=== PATIENT | female | born 1965 | race Hispanic/Latino ===

== ENCOUNTER → 2018-03-05 | Day surgery (SDC) | payer OTHER ==
[2018-03-04 12:47] LABS: BASOPHILS % 0.4 % (0.0-1.0); EOSINOPHILS # (AUTO) 0.2 (0.0-0.4); EOSINOPHILS % 2.4 % (0.0-6.0); HEMATOCRIT 40.8 % (34.2-44.1); HEMOGLOBIN 13.1 g/dL (12.0-16.0); LYMPHOCYTES % 31.5 % (18.0-39.1); MEAN CORPUSCULAR HEMOGLOBIN 29.2 pg (28-32); MEAN CORPUSCULAR HGB CONC 32.1 g/dL (31-35); MEAN CORPUSCULAR VOLUME 90.9 fL (81-99); MONOCYTES # (AUTO) 0.6 (0.2-0.8); NEUTROPHILS # (AUTO) 5.7 (2.1-6.9); NEUTROPHILS % 59.3 % (38.7-80.0); PLATELET COUNT 283 x10e3/uL (140-360); RED BLOOD COUNT 4.49 x10e6/uL (3.6-5.1); RED CELL DISTRIBUTION WIDTH 13.3 % (11.7-14.4)
[2018-03-04 13:00] LABS: ALANINE AMINOTRANSFERASE 34 IU/L (0-55); ALBUMIN 4.1 g/dL (3.5-5.0); ALBUMIN/GLOBULIN RATIO 1.3 (0.8-2.0); ALKALINE PHOSPHATASE 87 IU/L (40-150); ANION GAP 12.9 mmol/L (8-16); BLOOD UREA NITROGEN 16 mg/dL (7-26); BUN/CREATININE RATIO 20 (6-25); CALCIUM 9.8 mg/dL (8.4-10.2); CARBON DIOXIDE 27 mmol/L (22-29); CHLORIDE 103 mmol/L (98-107); EST GLOMERULAR FILTRATION RATE > 60 ML/MIN (60-); GLUCOSE 95 mg/dL (74-118); POTASSIUM 3.9 mmol/L (3.5-5.1); SODIUM 139 mmol/L (136-145)
[~2018-03-05] MED LIST: AZO CRANBERRY1 EAC1 PO; BELLADONNA/OPIUM 60 MG SUPP PR ONE; CEFTRIAXONE SOD 1 GM VIAL ONE; DEXAMETHASONE SOD PHOS INJ 4 MG/ML VIAL ONE; FENTANYL CITRATE/PF 100MCG/2 ML INJ ONE; GENTAMICIN 80MG/NS 100 ML 100 ML IV ONE; IBUPROFEN PO; IOPAMIDOL 610MG/1ML 300 MG/ML VIAL IV ONE; LIDOCAINE HCL 2% LOCAL INJ 5 ML SDV VIAL INJ ONE; MIDAZOLAM HCL 2 MG/2 ML VIAL ONE; ONDANSETRON HCL INJ 2 MG/ML VIAL ONE; OXYBUTYNIN CHLOR5 MG PO; PROPOFOL IV EMULSION 10 MG/ML 20 ML VIAL ONE; SEVOFLURANE INHAL SOLN 250 ML PEN BTL ONE; TYLENOL # 31 EA; ULTRAM50 MG PO
--- OUTSIDE RECORDS SUMMARY | 2018-03-05 06:38 | XMS REPORT | CCD ---
Author Author Auto Generated Organization [facility] Address Unknown Phone Unavailable Care Team Providers Care Kettle Chipper Name Role Phone Radha Bolton RP Allergies, Adverse Reactions, Alerts Substance Reaction Status erythromycin Active
--- OUTSIDE RECORDS SUMMARY | 2018-03-05 06:38 | XMS REPORT | Clinical Summary ---
Author Author [facility] Organization [facility] Address Unknown Phone Unavailable Care Team Providers Care Latex Thread Machine Operator Name Role Phone Antonella Brown MD PCP Allergies Comments Active Allergy Reactions Severity Noted Date Erythromycin Rash Medium 02/21/2018 Medications End Date Status Medication Sig Dispensed Refills Start Date Active diphenhydrAMINE Take 25 mg by 0 (BENADRYL) 25 mg tablet mouth daily as needed for allergies or sleep. Active acetaminophen-codeine Take 1 tablet 0 (TYLENOL WITH CODEINE #3) by mouth 300-30 mg per tablet every 4 (four) hours as needed for moderate pain. Active sulfamethoxazole-trimetho Take 1 tablet 0 prim (BACTRIM DS) 800-160 by mouth 2 mg per tablet (two) times a day. Active naproxen sodium (ALEVE) Take 220 mg 0 220 mg capsule by mouth 2 (two) times a day as needed. Active Problems No known active problems Encounters Care Team Description Date Type Specialty Harley Callaway MD 02/21/2018 Anesthesia General Surgery Event iBmal Pantoja MD CYSTO RETROGRADE, STENT PLACEMENT, URETEROSCOPY WITH LASER LITHOTRIPSY 02/21/2018 Surgery General Surgery Bimal Pantoja MD Calculus of ureter; Calculus of kidney 02/21/2018 Hospital General Surgery Encounter Antonella Brown MD Breast cancer screening 10/17/2017 Hospital Radiology Encounter Antonella Brown MD Breast cancer screening (Primary Dx) 09/13/2017 Transcribe Access Orders after 03/04/2017 Family History Medical History Relation Name Comments Heart disease Brother Heart disease Father Cancer Maternal Grandmother Diabetes Mother Cancer Paternal Grandmother Relation Name Status Comments Brother Father Maternal Grandmother Mother Paternal Grandmother Social History Date Tobacco Use Types Packs/Day Years Used Never Smoker Smokeless Tobacco: Never Used Alcohol Use Drinks/Week oz/Week Comments Yes 1 Cans of 0.6 beer Sex Assigned at Date Recorded Not on file Industry Job Start Date Occupation Not on file Not on file Not on file Travel End Travel History Travel Start No recent travel history available. Last Filed Vital Signs Time Taken Vital Sign Reading 02/21/2018 6:15 PM HEALTH ASSESSMENT AND TREATMENT TEACHER Blood Pressure 136/71 02/21/2018 6:15 PM HEALTH ASSESSMENT AND TREATMENT TEACHER Pulse 73 02/21/2018 5:56 PM HEALTH ASSESSMENT AND TREATMENT TEACHER Temperature 36.2 C (97.1 F) 02/21/2018 6:15 PM HEALTH ASSESSMENT AND TREATMENT TEACHER Respiratory Rate 18 02/21/2018 6:15 PM HEALTH ASSESSMENT AND TREATMENT TEACHER Oxygen Saturation 97% - Inhaled Oxygen - Concentration 02/21/2018 1:28 PM HEALTH ASSESSMENT AND TREATMENT TEACHER Weight 82.8 kg (182 lb 9.6 oz) 02/21/2018 1:28 PM HEALTH ASSESSMENT AND TREATMENT TEACHER Height 157.5 cm (5' 2") 02/21/2018 1:28 PM HEALTH ASSESSMENT AND TREATMENT TEACHER Body Mass Index 33.4 Plan of Treatment Health Maintenance Due Date Last Done Comments MMR VACCINES (1 of 1 - 1966 Standard series) VARICELLA VACCINES (1 of 1978 2 - 2-dose adolescent series) CERVICAL CANCER SCREENING 1986 COLON CANCER SCREENING 08/17/2015 SHINGRIX VACCINE (1 of 2) 08/17/2015 INFLUENZA VACCINE 11/13/2017 BREAST CANCER SCREENING 10/18/2019 10/17/2017, 02/03/2016, 03/31/2015, Additional history exists HEPATITIS B VACCINES Aged Out No longer eligible based on patient's age to complete this topic IPV VACCINES Aged Out No longer eligible based on patient's age to complete this topic MENINGOCOCCAL VACCINE Aged Out No longer eligible based on patient's age to complete this topic Implants Device Identifier Shelf Expiration Date Model / Serial / Lot Implanted Type Area Manufactur er 12/13/2020 [id number] / / [id number] Stent Uretl Unvrsa 6fr 22cm Urological Left: Ureter, COOK Hydrphlc W/O Gw - [id number] Implants [place] [employer] Implanted: Qty: 1 on 02/24/2018 by or Bimal Burns MD Procedures Comments Procedure Name Priority Date/Time Associated Diagnosis [place] < 1 HOUR Routine 02/21/2018 7:58 PM HEALTH ASSESSMENT AND TREATMENT TEACHER SURGICAL PATHOLOGY Routine 02/21/2018 REQUEST 4:55 PM HEALTH ASSESSMENT AND TREATMENT TEACHER CALCULI ANALYSIS WITH Routine 02/21/2018 PHOTO 4:55 PM HEALTH ASSESSMENT AND TREATMENT TEACHER ME AN ELECTIVE Routine 02/21/2018 SUPRAGLOTTIC AIRWAY 4:48 PM HEALTH ASSESSMENT AND TREATMENT TEACHER Procedure Note - Parish Bragg - 02/21/2018 4:48 PM HEALTH ASSESSMENT AND TREATMENT TEACHER Airway Date/Time: 02/21/2018 4:31 PM Performed by: PARISH BRAGG Authorized by: HARLEY CALLAWAY Location: OR Urgency: Elective Difficult Airway: No Anesthesio logist: HARLEY CALLAWAY Resident/C RNA/AA: PARISH BRAGG Performed by: resident/C RNA/AA Preoxygena radhika with 100% O2: Yes Mask Ventilatio n: Not attempted Final Airway Type: Supraglott ic airway Final LMA: Unique LMA Size: 4 Number of Attempts at Approach: 1 CYSTO RETROGRADE 02/21/2018 Calculus of ureter 3:00 PM HEALTH ASSESSMENT AND TREATMENT TEACHER Calculus of kidney Special Needs OUR LASER ESTIMATED GFR STAT 02/21/2018 1:15 PM HEALTH ASSESSMENT AND TREATMENT TEACHER URIC ACID LEVEL STAT 02/21/2018 1:15 PM HEALTH ASSESSMENT AND TREATMENT TEACHER PARATHYROID HORMONE STAT 02/21/2018 1:15 PM HEALTH ASSESSMENT AND TREATMENT TEACHER COMPREHENSIVE METABOLIC STAT 02/21/2018 PANEL 1:15 PM HEALTH ASSESSMENT AND TREATMENT TEACHER HC COMPLETE BLD COUNT STAT 02/21/2018 W/AUTO DIFF 1:15 PM HEALTH ASSESSMENT AND TREATMENT TEACHER XR ABDOMEN 1 VW STAT 02/21/2018 1:07 PM HEALTH ASSESSMENT AND TREATMENT TEACHER MAMMO BREAST SCREEN Routine 10/17/2017 Breast cancer screening TOMOSYNTHESIS BILATERAL 11:50 AM CDT after 03/04/2017 Results * OR FL < 1 Hour (02/21/2018 7:58 PM HEALTH ASSESSMENT AND TREATMENT TEACHER) Narrative Performed At EXAMINATION:[place] 1 HOUR HM RADIANT C-arm fluoroscopy was requested in OR.FLUORO TIME 0:56 IMPRESSION: Separate operative report will be issued by the physician performing the procedure. [id number] Procedure Note Hm Interface, Radiology Results Incoming - 02/24/2018 10:27 AM HEALTH ASSESSMENT AND TREATMENT TEACHER EXAMINATION: [place] FL 1 HOUR C-arm fluoroscopy was requested in OR. FLUORO TIME 0:56 IMPRESSION: Separate operative report will be issued by the physician performing the procedure. [id number] Performing Organization Address City/State/Zipcode Phone Number [facility] [address] [place] [address] * Calculi analysis with photo (02/21/2018 4:55 PM HEALTH ASSESSMENT AND TREATMENT TEACHER) Calculi mass 46 mg [facility] Calculi number Numerous [facility] Calculi size 1 to 4 mm [facility] Calculi descrption See Note [facility] Comment: Specimen consists of numerous, small, brown/gavin, irregular calculi fragments. Calculi composition See Note [facility] Comment: Calculi composed primarily of: 80% calcium oxalate monohydrate, 10% calcium oxalate dihydrate, and 10% calcium phosphate (hydroxy- and carbonate- apatite). INTERPRETIVE INFORMATION: Calculi (Stone) analysis Calculi are the products of physiological processes that yield crystalline compounds in a matrix of biological compounds and blood.Matrix components are not reported.The clinically significant crystalline components identified in calculi specimens are reported.Gross description may not be consistent with composition determined by FTIR analysis. EER calculi (stone) See Note [facility] analysis and photo Comment: Access [facility] Enhanced Report using either link below: -Direct access: [email or web address] -Enter Username, Password: [email or web address] Username: [email or web address] Password: [email or web address] Performed by [facility], [address] [place], [place] [id number] [email or web address], Thomas Ambriz MD - Lab. Director Specimen Serum Narrative Performed At [id number] [facility] LEFT URETERAL STONE Performing Organization Address [facility]/Zipcode Phone Number [facility] [address] [place] [address] [facility] [address] [place] [address] * Surgical pathology request (02/21/2018 4:55 PM HEALTH ASSESSMENT AND TREATMENT TEACHER) [facility] DEPARTMENT OF PATHOLOGY AND GENOMIC MEDICINE Surgical pathology report See link below for PDF Lab [facility] DEPARTMENT OF Report PATHOLOGY AND GENOMIC MEDICINE Result status This is Final Report for [facility] DEPARTMENT [id number] PATHOLOGY AND GENOMIC MEDICINE Performing Organization Address [facility] Phone Number [address] [place] [address] PATHOLOGY AND GENOMIC MEDICINE * Estimated GFR (02/21/2018 1:15 PM HEALTH ASSESSMENT AND TREATMENT TEACHER) Estimated GFR 84 mL/min/1.73 m2 [facility] DEPARTMENT OF Comment: PATHOLOGY AND CatergoryUnitsInte GENOMIC MEDICINE rpretation G1 >=90 Normal or high G2 60-89Mildly decreased G6o15-69 Mildly to moderately decreased [id number] Moderately to severely decreased G4 15-29Severely decreased G5 <15Kidney failure The eGFR was calculated using the Chronic Kidney Disease Epidemiology Collaboration (CKD-EPI) equation. Interpretation is based on recommendations of the National Kidney Foundation-Kidney Disease Outcomes Quality Initiative (NKF-KDOQI) published in 2014. Specimen Plasma specimen Performing Organization Address City/[facility]/Zipcode Phone Number [address] [place] [address] PATHOLOGY AND GENOMIC MEDICINE * CBC with platelet and differential (02/21/2018 1:15 PM HEALTH ASSESSMENT AND TREATMENT TEACHER) WBC 8.88 4.50 - 11.00 k/uL [facility] DEPARTMENT OF PATHOLOGY AND GENOMIC MEDICINE RBC 4.51 4.20 - 5.50 m/uL [facility] DEPARTMENT OF PATHOLOGY AND GENOMIC MEDICINE HGB 13.0 12.0 - 16.0 g/dL [facility] DEPARTMENT OF PATHOLOGY AND GENOMIC MEDICINE HCT 40.4 37.0 - 47.0 % [facility] DEPARTMENT OF PATHOLOGY AND GENOMIC MEDICINE MCV 89.6 82.0 - 100.0 fL [facility] DEPARTMENT OF PATHOLOGY AND GENOMIC MEDICINE MCH 28.8 27.0 - 34.0 pg [facility] DEPARTMENT OF PATHOLOGY AND GENOMIC MEDICINE MCHC 32.2 31.0 - 37.0 g/dL [facility] DEPARTMENT OF PATHOLOGY AND GENOMIC MEDICINE RDW - SD 45.0 37.0 - 55.0 fL [facility] DEPARTMENT OF PATHOLOGY AND GENOMIC MEDICINE MPV 10.3 8.8 - 13.2 fL [facility] DEPARTMENT OF PATHOLOGY AND GENOMIC MEDICINE Platelet count 323 150 - 400 k/uL [facility] DEPARTMENT OF PATHOLOGY AND GENOMIC MEDICINE Nucleated RBC 0.00 /100 WBC [facility] DEPARTMENT OF PATHOLOGY AND GENOMIC MEDICINE Neutrophils 55.2 39.0 - 69.0 % [facility] DEPARTMENT OF PATHOLOGY AND GENOMIC MEDICINE Lymphocytes 34.6 25.0 - 45.0 % [facility] DEPARTMENT OF PATHOLOGY AND GENOMIC MEDICINE Monocytes 6.5 0.0 - 10.0 % [facility] DEPARTMENT OF PATHOLOGY AND GENOMIC MEDICINE Eosinophils 2.7 0.0 - 5.0 % [facility] DEPARTMENT OF PATHOLOGY AND GENOMIC MEDICINE Basophils 0.5 0.0 - 1.0 % [facility] DEPARTMENT OF PATHOLOGY AND GENOMIC MEDICINE Specimen Blood Performing Organization Address [facility] Phone Number [address] [place] [address] PATHOLOGY AND [facility] * Uric acid level (02/21/2018 1:15 PM HEALTH ASSESSMENT AND TREATMENT TEACHER) Uric acid 5.8 (H) 2.4 - 5.7 mg/dL [facility] DEPARTMENT OF PATHOLOGY AND GENOMIC MEDICINE Specimen Plasma specimen Performing Organization Address [facility] Phone Number [address] [place] [address] PATHOLOGY [facility] * Parathyroid hormone (02/21/2018 1:15 PM HEALTH ASSESSMENT AND TREATMENT TEACHER) PTH 63 15 - 65 pg/mL [facility] DEPARTMENT OF PATHOLOGY AND GENOMIC MEDICINE Specimen Blood Performing Organization Address [facility] Phone Number [address] [place] [address] PATHOLOGY [facility] * Comprehensive metabolic panel (02/21/2018 1:15 PM HEALTH ASSESSMENT AND TREATMENT TEACHER) Sodium 142 135 - 148 mEq/L [facility] DEPARTMENT OF PATHOLOGY AND GENOMIC MEDICINE Potassium 4.1 3.5 - 5.0 mEq/L [facility] DEPARTMENT OF PATHOLOGY AND GENOMIC MEDICINE Chloride 104 98 - 112 mEq/L [facility] DEPARTMENT OF PATHOLOGY AND GENOMIC MEDICINE CO2 27 24 - 31 mEq/L [facility] DEPARTMENT OF PATHOLOGY AND GENOMIC MEDICINE Anion gap 11@ANIO 7 - 15 mEq/L [facility] DEPARTMENT OF PATHOLOGY AND GENOMIC MEDICINE BUN 16 6 - 20 mg/dL [facility] DEPARTMENT OF PATHOLOGY AND GENOMIC MEDICINE Creatinine 0.80 0.50 - 0.90 mg/dL [facility] DEPARTMENT OF PATHOLOGY AND GENOMIC MEDICINE Glucose 102 (H) 65 - 99 mg/dL [facility] DEPARTMENT OF PATHOLOGY AND GENOMIC MEDICINE Calcium 10.2 8.3 - 10.2 mg/dL [facility] DEPARTMENT OF PATHOLOGY AND GENOMIC MEDICINE Protein 8.0 6.3 - 8.3 g/dL [facility] DEPARTMENT OF Comment: PATHOLOGY AND GENOMIC MEDICINE 4.6-7.0 g/dL 1 week 4.4-7.6 g/dL 7 months-1year 5.1-7.3 g/dL 1-2 years5.6-7 .5 g/dL >3 years6.0-8 .0 g/dL 18-150 6.3-8.3 g/dL Albumin 4.6 3.5 - 5.0 g/dL [facility] DEPARTMENT OF PATHOLOGY AND GENOMIC MEDICINE A/G ratio 1.4 0.7 - 3.8 [facility] DEPARTMENT OF PATHOLOGY AND GENOMIC MEDICINE Alkaline phosphatase 97 35 - 104 U/L [facility] DEPARTMENT OF PATHOLOGY AND GENOMIC MEDICINE AST 29 10 - 35 U/L [facility] DEPARTMENT OF PATHOLOGY AND GENOMIC MEDICINE ALT 42 5 - 50 U/L [facility] DEPARTMENT OF PATHOLOGY AND GENOMIC MEDICINE Total bilirubin 0.7 0.0 - 1.2 mg/dL [facility] DEPARTMENT OF PATHOLOGY AND GENOMIC MEDICINE Specimen Plasma specimen Performing Organization Address City/State/Zipcode Phone Number [facility] [place] [address] [place] [address] PATHOLOGY AND GENOMIC MEDICINE * XR Abdomen 1 Vw (02/21/2018 1:07 PM HEALTH ASSESSMENT AND TREATMENT TEACHER) Narrative Performed At EXAMINATION:XR ABDOMEN 1 VW [facility] CLINICAL HISTORY:PREOP COMPARISON:None. FINDINGS: The bones appear unremarkable. The abdominal gas pattern is nonspecific with a large volume of stool in the colon. Mild central small bowel distention is noted. No extraluminal collections are noted. Vascular calcifications are present in the pelvis. IMPRESSION: Nonspecific abdominal gas pattern [id number] Procedure Note Hm Interface, Radiology Results Incoming - 02/21/2018 1:13 PM HEALTH ASSESSMENT AND TREATMENT TEACHER EXAMINATION: XR ABDOMEN 1 VW CLINICAL HISTORY: PREOP COMPARISON: None. FINDINGS: The bones appear unremarkable. The abdominal gas pattern is nonspecific with a large volume of stool in the colon. Mild central small bowel distention is noted. No extraluminal collections are noted. Vascular calcifications are present in the pelvis. IMPRESSION: Nonspecific abdominal gas pattern [id number] Performing Organization Address [facility] Phone Number [facility] [address] [place] [address] * Mammo Breast Screen Tomosynthesis Bilateral (10/17/2017 11:50 AM CDT) Narrative Performed At PROCEDURE:MAMMO BREAST SCREEN TOMOSYNTHESIS BILATERAL10/17/2017 11:33 AM [facility] This patient's mammogram was interpreted with the assistance of computer-aided detection (CAD). Digital breast tomosynthesis (3D) imaging was performed. CLINICAL HISTORY:52-year-old female referred for screening mammogram.She reports no new or current breast complaints. FAMILY HISTORY:Family history of breast carcinoma diagnosed in patient's paternal grandmother at age 91 and paternal aunt at age 40. COMPARISON:02/03/2016, 03/31/2015, 10/27/2013. BREAST DENSITY:The breasts are heterogeneously dense, which may obscure small masses. DIGITAL SCREENING MAMMOGRAPHY FINDINGS: There are no dominant masses, suspicious microcalcifications or unexplained architectural distortion to suggest malignancy. No interval suspicious mammographic change. IMPRESSION: BI-RADS Category 1-Negative. RECOMMENDATION: Annual mammography. This facility is accredited by [employer] for Mammography. A negative x-ray report should not delay biopsy if a dominant or clinically suspicious mass is present. Not all cancers are identified by x-ray. [id number] The results of this exam have been sent to the patient. Performing Organization Address [facility] Phone Number [facility] [address] [place] [address] after 03/04/2017 Insurance Payer Benefit Subscriber ID Type Phone Address Plan / Group HUMANA HUMANA xxxxxxxxx PPO CHOICE CARE PPO amily (Home) [place] [address] Advance Directives Patient has advance care planning documents on file. For more information, thelma e contact: Christopher Aguirre [address] [place] [address]
--- OUTSIDE RECORDS SUMMARY | 2018-03-05 06:38 | XMS REPORT | Summary of Care ---
Author Author [facility] Organization [facility] Address Unknown Phone Unavailable Encounter HQ Encntr_alias(FIN) [id number] Date(s): 04/13/15 - 04/13/15 [facility] [address] [place] [address]- [phone] Discharge Disposition: Home Attending Physician: Bernardo Richardson MD Vital Signs No data available for this section Problem List No data available for this section Allergies, Adverse Reactions, Alerts Substance Reaction Severity Status erythromycin Active Medications No data available for this section Results No data available for this section Immunizations No data available for this section Procedures No data available for this section Social History No data available for this section Assessment and Plan No data available for this section
--- OUTSIDE RECORDS SUMMARY | 2018-03-05 06:38 | XMS REPORT | Continuity of Care Document ---
Author Author [facility] Interface Address Unknown Phone Unavailable Problems Problem Status Onset Date Classification Date Reported Comments Source MENORHAGIA Active 04/01/2017 [facility] ABNORMAL INCREASED MUSCLE TIGHTNESS Active 02/15/2012 [facility] 728.85, ABNORMAL INCREASED MUSCLE TIGHTNESS Active 02/06/2012 [facility] CHEST PAIN Active 01/08/2012 [facility] MUSCULAR/CERVICAL PAIN Active 12/24/2011 [facility] Menorrhagia Resolved Problem 04/09/2017 [facility] Obesity Resolved Problem 04/09/2017 [facility] Precordial pain Active Diagnosis 02/28/2016 [facility] Pure hypercholesterolemia Active Diagnosis 02/28/2016 [facility] Abnormal EKG Active Diagnosis 02/28/2016 [facility] Abn. Cardio Study Active Diagnosis 02/28/2016 [facility] CERVICAL PAIN Active [facility] URETERAL STONE Active [place] PAIN Active [facility] Medications Medication Details Route Status Patient Instructions Ordering Provider Order Date Source gabapentin 300 MG Oral Capsule 300 mg=1 cap, PO, Q8H, # 60 cap, 0 Refill(s) Active 04/06/2017 [facility] ondansetron 4 mg oral tablet 4 mg=1 tab, PO, Q8H, PRN Nausea, # 60 tab, 0 Refill(s) Active 04/06/2017 [facility] Docusate Sodium 50 MG / sennosides, SNF 8.6 MG Oral Tablet 1 tab, PO, BID, # 60 tab, 0 Refill(s) Active 04/06/2017 [facility] tramadol hydrochloride 50 MG Oral Tablet 50 mg=1 tab, PO, Q6H, PRN Pain Score 4-6, # 30 tab, 0 Refill(s) Active 04/06/2017 [facility] Enoxaparin 40 mg, 0.4 mL, Route: SUB-Q, Drug form: INJ, [id number], Dosing Weight 81.818, kg, Start date: 04/06/17 9:00:00 BEAMSTER, Duration: 30 day, Stop date: 05/05/17 9:00:00 CSTNotes: (Same as: Lovenox) Inactive 04/06/2017 [facility] Docusate Sodium 50 MG / sennosides, SNF 8.6 MG Oral Tablet 1 tab, Route: PO, Drug Form: TAB, Dosing Weight 81.818, kg, BID, Start date: 04/06/17 9:00:00 BEAMSTER, Duration: 30 day, Stop date: 05/05/17 17:00:00 CSTNotes: (Same as Senokot-S) Equiv. to Nitza-Colace. Inactive 04/06/2017 [facility] CeleBREX 200 mg, 1 cap, Route: PO, Drug form: CAP, Q12H, Dosing Weight 81.818, kg, Start date: 04/06/17 0:00:00 BEAMSTER, Duration: 30 day, Stop date: 05/05/17 12:00:00 CSTNotes: NSAID. Please check indication. Not for seizure. (Same As: CeleBREX) Inactive 04/06/2017 [facility] Acetaminophen 1,000 mg, 2 tab, Route: PO, Drug form: TAB, Q6H, Dosing Weight 81.818, kg, Start date: 04/05/17 21:00:00 BEAMSTER, Duration: 30 day, Stop date: 05/05/17 12:00:00 CSTNotes: Max acetaminophen 4000 mg/day (4 gm/day). (Same as: Tylenol Extra Strength) No Longer Active 04/06/2017 [facility] celecoxib 200 mg, 1 cap, Route: PO, Drug form: CAP, Q12H, Dosing Weight 81.818, kg, Start date: 04/05/17 21:00:00 BEAMSTER, Duration: 30 day, Stop date: 05/05/17 9:00:00 CSTNotes: NSAID. Please check indication. Not for seizure. (Same As: CeleBREX) Inactive 04/06/2017 [facility] CeleBREX 400 mg, 2 cap, Route: PO, Drug form: CAP, ONCE, Dosing Weight 81.818, kg, Priority: Routine, Start date: 04/05/17 20:40:00 BEAMSTER, Stop date: 04/05/17 20:40:00 CSTNotes: NSAID. Please check indication. Not for seizure. (Same As: CeleBREX) No Longer Active 04/06/2017 [facility] gabapentin 300 mg, 1 cap, Route: PO, Drug form: CAP, Q8H, Dosing Weight 81.818, kg, Start date: 04/05/17 20:38:00 BEAMSTER, Duration: 30 day, Stop date: 05/05/17 16:00:00 CSTNotes: (Same as: Neurontin) No Longer Active 04/06/2017 [facility] Simethicone 160 mg, 2 tab, Route: CHEW, Drug form: CHEWTAB, TID, Dosing Weight 81.818, kg, PRN Gas, Start date: 04/05/17 18:00:00 BEAMSTER, Duration: 30 day, Stop date: 05/05/17 17:59:00 CSTNotes: (Same as: Mylicon) No Longer Active 04/06/2017 [facility] Reglan 10 mg, 2 mL, Route: IVP, Drug form: INJ, Q6H, Dosing Weight 81.818, kg, PRN Nausea & Vomiting, Start date: 04/05/17 18:00:00 BEAMSTER, Duration: 30 day, Stop date: 05/05/17 17:59:00 CSTNotes: (Same as: Reglan) No Longer Active 04/06/2017 [facility] Zofran 4 mg, 1 tab, Route: PO, Drug form: TAB, Q8H, Dosing Weight 81.818, kg, PRN Nausea, Start date: 04/05/17 18:00:00 BEAMSTER, Duration: 30 day, Stop date: 05/05/17 17:59:00 CSTNotes: (Same as: Zofran) No Longer Active 04/06/2017 [facility] Calcium Chloride 0.0014 MEQ/ML / Potassium Chloride 0.004 MEQ/ML / Sodium Chloride 0.103 MEQ/ML / Sodium Lactate 0.028 MEQ/ML Injectable Solution 1,000 mL, Rate: 80 ml/hr, Infuse over: 12.5 hr, Route: IV, Dosing Weight 81.818 kg, Total Volume: 1,000, Start date: 04/05/17 18:00:00 BEAMSTER, Duration: 30 day, Stop date: 05/05/17 17:59:00 BEAMSTER, 1.92, m2 No Longer Active 04/06/2017 [facility] neostigmine (ANES) Route: IV, Drug form: INJ, ONCE, Stop date: 04/05/17 17:59:00 BEAMSTER Inactive 04/05/2017 [facility] ketOROLAC (ANES) IV, ONCE Inactive 04/05/2017 [facility] glycopyrrolate (ANES) Route: IV, Drug form: INJ, ONCE, Stop date: 04/05/17 17:59:00 BEAMSTER Inactive 04/05/2017 [facility] ondansetron (ANES) Route: IV, Drug form: INJ, ONCE, Stop date: 04/05/17 17:59:00 BEAMSTER Inactive 04/05/2017 [facility] ceFAZolin (ANES) Route: IV, Drug form: INJ, ONCE, Stop date: 04/05/17 17:42:00 [place]STER Inactive 04/05/2017 [facility] fentaNYL (ANES) Route: IV, Drug form: INJ, ONCE, Stop date: 04/05/17 16:47:00 BEAMSTER Inactive 04/05/2017 [facility] rocuronium (ANES) Route: IV, Drug form: INJ, ONCE, Stop date: 04/05/17 15:37:00 BEAMSTER Inactive 04/05/2017 [facility] famotidine (ANES) Route: IV, Drug form: INJ, ONCE, Stop date: 04/05/17 15:12:00 BEAMSTER Inactive 04/05/2017 [facility] Sodium Chloride 0.9% IV (ANES) 100 mL + magnesium sulfate (ANES) 2000 mg Route: IV, Drug form: INJ, Start date: 04/05/17 15:07:00 BEAMSTER, Stop date: 04/05/17 16:07:00 BEAMSTER Inactive 04/05/2017 [facility] acetaminophen (ANES) Route: IV, Drug form: INJ, ONCE, Stop date: 04/05/17 15:07:00 BEAMSTER Inactive 04/05/2017 [facility] ceFAZolin (ANES) Route: IV, Drug form: INJ, ONCE, Stop date: 04/05/17 14:52:00 BEAMSTER Inactive 04/05/2017 [facility] dexamethasone (ANES) Route: IV, Drug form: INJ, ONCE, Stop date: 04/05/17 14:41:00 BEAMSTER Inactive 04/05/2017 [facility] ketAMINE (ANES) Route: IV, Drug form: INJ, ONCE, Stop date: 04/05/17 14:41:00 BEAMSTER Inactive 04/05/2017 [facility] fentaNYL (ANES) Route: IV, Drug form: INJ, ONCE, Stop date: 04/05/17 14:41:00 BEAMSTER Inactive 04/05/2017 [facility] lidocaine (ANES) Route: IV, Drug form: INJ, ONCE, Stop date: 04/05/17 14:41:00 BEAMSTER Inactive 04/05/2017 [facility] midazolam (ANES) Route: IV, Drug form: SOLN, ONCE, Stop date: 04/05/17 14:41:00 BEAMSTER Inactive 04/05/2017 [facility] rocuronium (ANES) Route: IV, Drug form: INJ, ONCE, Stop date: 04/05/17 14:41:00 BEAMSTER Inactive 04/05/2017 [facility] propofol (ANES) Route: IV, Drug form: INJ, ONCE, Stop date: 04/05/17 14:41:00 BEAMSTER Inactive 04/05/2017 [facility] Tramadol 50 mg, 1 tab, Route: PO, Drug form: TAB, Q6H, Dosing Weight 81.818, kg, PRN Pain Score 4-6, Start date: 04/05/17 14:02:00 BEAMSTER, Duration: 30 day, Stop date: 05/05/17 14:01:00 CSTNotes: Not to exceed 4 00mg/day. (Same As: Ultram) No Longer Active 04/05/2017 [facility] Ondansetron 4 mg, 2 mL, Route: IVP, Drug form: INJ, Q8H, Dosing Weight 81.818, kg, PRN Nausea & Vomiting, Start date: 04/05/17 14:02:00 BEAMSTER, Duration: 30 day, Stop date: 05/05/17 14:01:00 CSTNotes: (Same as: Zofran) MEDICATION WASTE Product Size: 4 mg Product Wasted: ___ mg No Longer Active 04/05/2017 [facility] Lactated Ringers Injection IV (ANES) 1000 mL Route: IV, Total Volume: 1,000, Start date: 04/05/17 13:45:00 BEAMSTER, Stop date: 04/05/17 14:45:00 BEAMSTER Inactive 04/05/2017 [facility] Ondansetron 4 mg, 2 mL, Route: IVP, Drug form: INJ, ONCE, Dosing Weight 81.818, kg, PRN Nausea & Vomiting, Start date: 04/05/17 13:38:00 CSTNotes: (Same as: Zofran) MEDICATION WASTE Product Size: 4 mg Product Wasted: ___ mg Inactive 04/05/2017 [facility] Flumazenil 0.2 mg, 2 mL, Route: IVP, Drug form: INJ, PRN, Dosing Weight 81.818, kg, PRN Benzodiazepine Reversal, Initial dose, Start date: 04/05/17 13:38:00 BEAMSTER, Duration: 30 day, Stop date: 05/05/17 13:37:00 C STNotes: (Same as: Romazicon) Inactive 04/05/2017 [facility] Naloxone 0.4 mg, 1 mL, Route: IVP, Drug form: INJ, Q2MIN, Dosing Weight 81.818, kg, PRN Narcotic Reversal, Start date: 04/05/17 13:38:00 BEAMSTER, Duration: 8 doses or times, Stop date: Limited # of timesNotes: Same as Narcan Inactive 04/05/2017 [facility] Labetalol 10 mg, 2 mL, Route: IVP, Drug form: INJ, Q5Min, Dosing Weight 81.818, kg, PRN Elevated BP, Start date: 04/05/17 13:38:00 BEAMSTER, Duration: 5 doses or times, Stop date: Limited # of times Inactive 04/05/2017 [facility] Hydralazine 10 mg, 0.5 mL, Route: IVP, Drug form: INJ, Q20Min, Dosing Weight 81.818, kg, PRN Elevated BP, Start date: 04/05/17 13:38:00 BEAMSTER, Duration: 2 doses or times, Stop date: Limited # of timesNotes: (Same as: Apresoline) Push over 5 minutes Inactive 04/05/2017 [facility] Oxycodone 10 mg, 2 tab, Route: PO, Drug form: TAB, Q4H, Dosing Weight 81.818, kg, PRN Pain Score 7-10, Start date: 04/05/17 13:38:00 BEAMSTER, Duration: 30 day, Stop date: 05/05/17 13:37:00 CSTNotes: (Same as: Charlee codone) Inactive 04/05/2017 [facility] Hydromorphone 0.5 mg, 0.25 mL, Route: IVP, Drug form: INJ, Q5Min, Dosing Weight 81.818, kg, PRN Pain Score 7-10, Start date: 04/05/17 13:38:00 BEAMSTER, Duration: 4 doses or times, Stop date: Limited # of timesNotes: Hayden hilda as Dilaudid Inactive 04/05/2017 [facility] 72 HR Scopolamine 0.0139 MG/HR Transdermal Patch 1 patch, Route: TOP, Drug Form: ERFILM, Dosing Weight 81.818, kg, PRE OP, Start date: 04/05/17 13:00:00 BEAMSTER, Duration: 30 day, Stop date: 05/05/17 12:59:00 [place] Inactive 04/05/2017 [facility] Neurontin 300 mg, Route: PO, ONCE, Dosing Weight 81.818, kg, Priority: NOW, Start date: 04/05/17 12:31:00 BEAMSTER, Stop date: 04/05/17 12:31:00 BEAMSTER Inactive 04/05/2017 [facility] Celebrex 400 mg, 2 cap, Route: PO, Drug form: CAP, ONCE, Dosing Weight 81.818, kg, Priority: NOW, Start date: 04/05/17 12:31:00 BEAMSTER, Stop date: 04/05/17 12:31:00 CSTNotes: NSAID. Please check indication. Not for seizure. (Same As: CeleBREX) Inactive 04/05/2017 [facility] heparin 5,000 unit, 1 mL, Route: SUB-Q, Drug form: INJ, PRE OP, Dosing Weight 81.818, kg, Start date: 04/05/17 11:00:00 BEAMSTER, Duration: 30 day, Stop date: 05/05/17 10:59:00 CSTNotes: porcine heparin Inactive 04/05/2017 [facility] gabapentin 300 mg, 1 cap, Route: PO, Drug form: CAP, PRE OP, Dosing Weight 81.818, kg, Start date: 04/04/17 20:00:00 BEAMSTER, Duration: 30 day, Stop date: 05/04/17 19:59:00 CSTNotes: (Same as: Neurontin) No Longer Active 04/05/2017 [facility] heparin sodium, porcine 2500 UNT/ML Injectable Solution 5,000 unit, 1 mL, Route: IV, Drug form: INJ, PRE OP, Dosing Weight 81.818, kg, Start date: 04/04/17 20:00:00 BEAMSTER, Duration: 30 day, Stop date: 05/04/17 19:59:00 CSTNotes: porcine heparin No Longer Active 04/05/2017 [facility] 72 HR Scopolamine 0.0139 MG/HR Transdermal Patch 1 patch, Route: TOP, Drug Form: ERFILM, Dosing Weight 81.818, kg, PRE OP, Start date: 04/04/17 20:00:00 BEAMSTER, Duration: 30 day, Stop date: 05/04/17 19:59:00 CSTNotes: Change patch every 72 hours (Same as: Transderm-Scop) No Longer Active 04/05/2017 [facility] Celebrex 400 mg, 4 cap, Route: PO, Drug form: CAP, PRE OP, Dosing Weight 81.818, kg, Start date: 04/04/17 20:00:00 BEAMSTER, Duration: 30 day, Stop date: 05/04/17 19:59:00 CSTNotes: NSAID. Please check indication. Not for seizure. (Same As: CeleBREX ) No Longer Active 04/05/2017 [facility] Benadryl 25 mg, PO, Daily, PRN as needed for allergy symptoms, 0 Refill(s) No Longer Active 04/04/2017 [facility] Indomethacin 1 capsule with food Orally Active 25 MG Orally Twice a day Ahmed 10/11/2014 [facility] 5/325 oral tablet 1 tab, PO, Q4-6H, PRN, 30 tab, as needed for pain, Substitution Allowed, Maintenance PO Active [facility] 01/09/2012 [facility] Valium 5 mg oral tablet 5 mg, 1 tab, PO, QID, PRN, 10 tab, dizziness, Substitution Allowed, TAB PO Active [facility] 01/09/2012 [facility] Naprosyn 500 mg oral tablet 500 mg, 1 tab, PO, BID, PRN, 20 tab, for pain, Substitution Allowed, TAB PO Active [facility] 01/09/2012 [facility] Toradol 30 mg/mL injectable solution 30 mg, Route: IV, ONCE, Dosing Weight 77.273, kg, Start date: 01/09/12 0:06:00, Stop date: 01/09/12 0:06:00 IV No Longer Active [facility] 01/09/2012 [facility] Allergies, Adverse Reactions, Alerts Substance Category Reaction Severity Reaction type Status Date Reported Comments Source Erythromycin Adverse Reaction Info Not Available Adverse Reaction Active 10/11/2014 [facility] erythromycin Assertion Drug allergy Active [facility] Immunizations Immunization Date Given Site Status Last Updated Comments Source Results Order Name Results Value Reference Range Date Interpretation Comments Source CHEM PANEL Magnesium Lvl 2.5 mg/dL 1.8 - 2.4 04/06/2017 [facility] ELECTROLYTES AGAP 12.7 meq/L 10.0 - 20.0 04/06/2017 [facility] ELECTROLYTES eGFR 85 mL/min/1.73m2 04/06/2017 Result Comment: The eGFR is calculated using the CKD-EPI formula. In most young, healthy individuals the eGFR will be >90 mL/min/1.73m2. The eGFR declines with age. An eGFR of 60-89 may be normal in some populations, particularly the elderly, for whom the CKD-EPI formula has not been extensively validated. Use of the eGFR is not recommended in the following populations: Individuals with unstable creatinine concentrations, including patients and those with serious co-morbid conditions. Patients with extremes in muscle mass or diet. The data above are obtained from the National Kidney Disease Education Program (NKDEP) which additionally recommends that when the eGFR is used in patients with extremes of body mass index for purposes of drug dosing, the eGFR should be multiplied by the estimated BMI. [facility] ELECTROLYTES Glucose Lvl 122 mg/dL 70 - 99 04/06/2017 [facility] ELECTROLYTES Potassium Lvl 4.7 meq/L 3.5 - 5.1 04/06/2017 [facility] ELECTROLYTES Sodium Lvl 140 meq/L 135 - 145 04/06/2017 [facility] ELECTROLYTES Creatinine Lvl 0.80 mg/dL 0.50 - 1.40 04/06/2017 [facility] ELECTROLYTES BUN 13 mg/dL 7 - 22 04/06/2017 [facility] ELECTROLYTES Calcium Lvl 8.5 mg/dL 8.5 - 10.5 04/06/2017 [facility] ELECTROLYTES CO2 24 meq/L 24 - 32 04/06/2017 [facility] ELECTROLYTES Chloride Lvl 108 meq/L 95 - 109 04/06/2017 [facility] HEMATOLOGY RDW 16.3 % 11.5 - 14.5 04/06/2017 [facility] HEMATOLOGY MCHC 33.4 g/dL 32.0 - 36.0 04/06/2017 [facility] HEMATOLOGY Platelet 263 K/CMM 133 - 450 04/06/2017 [facility] HEMATOLOGY MPV 8.6 fL 7.4 - 10.4 04/06/2017 [facility] HEMATOLOGY WBC 10.9 K/CMM 3.7 - 10.4 04/06/2017 [facility] HEMATOLOGY Hgb 10.8 g/dL 12.0 - 16.0 04/06/2017 [facility] HEMATOLOGY Hct 32.4 % 36.0 - 48.0 04/06/2017 [facility] HEMATOLOGY RBC 3.79 M/CMM 4.20 - 5.40 04/06/2017 [facility] HEMATOLOGY MCV 85.4 fL 80.0 - 98.0 04/06/2017 [facility] HEMATOLOGY MCH 28.5 pg 27.0 - 31.0 04/06/2017 [facility] HEMATOLOGY Monocytes # 0.9 K/CMM 0.0 - 0.8 04/06/2017 [facility] HEMATOLOGY Segs-Bands # 8.4 K/CMM 1.5 - 8.1 04/06/2017 [facility] HEMATOLOGY Lymphocytes # 1.5 K/CMM 1.0 - 5.5 04/06/2017 [facility] HEMATOLOGY Basophils 0.2 % 0.0 - 1.0 04/06/2017 [facility] HEMATOLOGY Lymphocytes 14.0 % 20.0 - 40.0 04/06/2017 [facility] HEMATOLOGY Monocytes 8.7 % 2.0 - 12.0 04/06/2017 [facility] HEMATOLOGY Segs 77.1 % 45.0 - 75.0 04/06/2017 [facility] BLOOD BANK RESULTS Antibody Scrn Negative (04/04/17 11:36 AM) 04/04/2017 [facility] BLOOD BANK RESULTS ABO/Rh O NEG 04/04/2017 [facility] CHEM PANEL eGFR 109 mL/min/1.73m2 04/04/2017 Result Comment: The eGFR is calculated using the CKD-EPI formula. In most young, healthy individuals the eGFR will be >90 mL/min/1.73m2. The eGFR declines with age. An eGFR of 60-89 may be normal in some populations, particularly the elderly, for whom the CKD-EPI formula has not been extensively validated. Use of the eGFR is not recommended in the following populations: Individuals with unstable creatinine concentrations, including patients and those with serious co-morbid conditions. Patients with extremes in muscle mass or diet. The data above are obtained from the National Kidney Disease Education Program (NKDEP) which additionally recommends that when the eGFR is used in patients with extremes of body mass index for purposes of drug dosing, the eGFR should be multiplied by the estimated BMI. [facility] CHEM PANEL Creatinine Lvl 0.55 mg/dL 0.50 - 1.40 04/04/2017 [facility] CHEM PANEL BUN 10 mg/dL 7 - 22 04/04/2017 [facility] CHEM PANEL Chloride Lvl 104 meq/L 95 - 109 04/04/2017 [facility] CHEM PANEL Potassium Lvl 4.4 meq/L 3.5 - 5.1 04/04/2017 [facility] CHEM PANEL CO2 27 meq/L 24 - 32 04/04/2017 [facility] CHEM PANEL Calcium Lvl 9.4 mg/dL 8.5 - 10.5 04/04/2017 [facility] CHEM PANEL Glucose Lvl 84 mg/dL 70 - 99 04/04/2017 [facility] CHEM PANEL Sodium Lvl 141 meq/L 135 - 145 04/04/2017 [facility] CHEM PANEL AGAP 14.4 meq/L 10.0 - 20.0 04/04/2017 [facility] HEMATOLOGY MPV 9.0 fL 7.4 - 10.4 04/04/2017 [facility] HEMATOLOGY Platelet 306 K/CMM 133 - 450 04/04/2017 [facility] HEMATOLOGY RDW 16.2 % 11.5 - 14.5 04/04/2017 [facility] HEMATOLOGY MCV 85.1 fL 80.0 - 98.0 04/04/2017 [facility] HEMATOLOGY MCH 27.7 pg 27.0 - 31.0 04/04/2017 [facility] HEMATOLOGY MCHC 32.5 g/dL 32.0 - 36.0 04/04/2017 [facility] HEMATOLOGY RBC 4.46 M/CMM 4.20 - 5.40 04/04/2017 [facility] HEMATOLOGY Hgb 12.4 g/dL 12.0 - 16.0 04/04/2017 [facility] HEMATOLOGY Hct 38.0 % 36.0 - 48.0 04/04/2017 [facility] HEMATOLOGY WBC 8.1 K/CMM 3.7 - 10.4 04/04/2017 [facility] HEMATOLOGY Lymphocytes 31.7 % 20.0 - 40.0 04/04/2017 [facility] HEMATOLOGY Segs 59.3 % 45.0 - 75.0 04/04/2017 [facility] HEMATOLOGY Monocytes 6.4 % 2.0 - 12.0 04/04/2017 [facility] HEMATOLOGY Eosinophils 2.1 % 0.0 - 4.0 04/04/2017 [facility] HEMATOLOGY Basophils 0.5 % 0.0 - 1.0 04/04/2017 [facility] HEMATOLOGY Segs-Bands # 4.8 K/CMM 1.5 - 8.1 04/04/2017 [facility] HEMATOLOGY Lymphocytes # 2.6 K/CMM 1.0 - 5.5 04/04/2017 [facility] HEMATOLOGY Monocytes # 0.5 K/CMM 0.0 - 0.8 04/04/2017 [facility] HEMATOLOGY Eosinophils # 0.2 K/CMM 0.0 - 0.5 04/04/2017 [facility] Abdomen AP DX Abdomen AP DX KUB: The renal shadows are obscured by bowel content. There is a spiculated 6 mm calculus overlying the left mid kidney. There are phleboliths in the right side of the pelvis. I could not rule out a calculus at the right ureterovesical junction. No other definite urinary tract calculus is seen. The abdominal gas pattern is within normal limits. There are no significant osseous abnormalities. SL:13 04/13/2015 - - Read by: Caleb Walter MD Dictated Date/time: 04/13/15 13:55 Electronically Signed by: Caleb Walter MD 04/13/15 13:58 FINAL REPORT [facility] CHEMISTRY Troponin-I null 0.00 - 0.40 01/09/2012 Normal [facility] CHEMISTRY CK MB null 0.5 - 3.6 01/09/2012 Normal [facility] CHEMISTRY Total CK 55 unit/L 12 - 191 01/09/2012 Normal [facility] CHEMISTRY CK MB Index null 0.0 - 2.5 01/09/2012 Normal [facility] Vital Signs Vital Sign Value Date Comments Source Heart Rate 86 04/06/2017 [facility] Temperature Oral (F) 99.2 F 04/06/2017 [facility] Respitory Rate 18 04/06/2017 [facility] Systolic (mm Hg) 108 04/06/2017 [facility] Diastolic (mm Hg) 71 04/06/2017 [facility] Temperature Oral (F) 98.4 F 04/06/2017 [facility] Heart Rate 83 04/06/2017 [facility] Respitory Rate 18 04/06/2017 [facility] Systolic (mm Hg) 101 04/06/2017 [facility] Diastolic (mm Hg) 66 04/06/2017 [facility] Heart Rate 78 04/06/2017 [facility] Respitory Rate 18 04/06/2017 [facility] Systolic (mm Hg) 113 04/06/2017 [facility] Diastolic (mm Hg) 74 04/06/2017 [facility] Temperature Oral (F) 98.7 F 04/06/2017 [facility] Weight 81.818 04/06/2017 [facility] Height 157.4 cm 04/06/2017 [facility] BMI Calculated 33.02 04/06/2017 [facility] BMI Calculated 32.99 04/05/2017 [facility] Weight 81.818 04/05/2017 [facility] Height 157.48 cm 04/05/2017 [facility] Weight 81.818 04/04/2017 [facility] BMI Calculated 32.99 04/04/2017 [facility] Height 157.48 cm 04/04/2017 [facility] Weight 170 10/11/2014 [facility] Heart Rate 76 10/11/2014 [facility] Diastolic (mm Hg) 88 10/11/2014 [facility] Systolic (mm Hg) 124 10/11/2014 Alba Willis Weight 77.273 01/09/2012 [facility] Height 157.48 cm 01/09/2012 [facility] Encounters Location Location Details Encounter Type Encounter Number Reason For Visit Attending Provider ADM Date DC Date Status Source [facility] Emergency [id number] OBEY POPAT 01/08/2012 01/09/2012 Active [facility] [id number] MUSCULAR/CERVICAL PAIN ENAYET RAHIM 01/09/2012 Active [facility] [id number] CERVICAL PAIN ENAYET RAHIM 02/08/2012 Active [facility] Outpatient [id number] 728.85, ABNORMAL INCREASED MUSCLE TIGHTNESS ENAYET RAHIM 02/11/2012 Active [facility] Outpatient [id number] ABNORMAL INCREASED MUSCLE TIGHTNESS ENAYET RAHIM 02/16/2012 02/16/2012 Active [facility] [id number] PAIN ENAYET RAHIM 03/11/2012 Active [facility] Alba Willis MD, [place] pt seen at [facility] here for cardiac f/u [id number] 10/11/2014 10/11/2014 Alba Willis [facility] Outpatient [id number] Bernardo Torrezlorraine 04/13/2015 04/14/2015 [facility] Observation [id number] Mak Hernández III 04/06/2017 04/06/2017 [facility] Procedures Procedure Code Date Perfomer Comments Source section<sup>1</sup> 16962801 times 2 [facility] Hysterectomy<sup>2</sup> [id number] possible staging [facility] Rotator cuff repair [id number] [facility]
--- OUTSIDE RECORDS SUMMARY | 2018-03-05 06:38 | XMS REPORT | CCD ---
Author Author Auto Generated Organization [facility] Address Unknown Phone Unavailable Care Team Providers Care Foxing Closer Name Role Phone Radha Bolton CP Allergies, Adverse Reactions, Alerts Substance Reaction Status erythromycin Active
--- OUTSIDE RECORDS SUMMARY | 2018-03-05 06:38 | XMS REPORT | CCD ---
Author Author Auto Generated Organization [facility] Address Unknown Phone Unavailable Care Team Providers Care Internet Marketer Name Role Phone Radha Bolton CP Allergies, Adverse Reactions, Alerts Substance Reaction Status erythromycin Active
--- OUTSIDE RECORDS SUMMARY | 2018-03-05 06:38 | XMS REPORT | CCD ---
Author Author Auto Generated Organization [facility] Address Unknown Phone Unavailable Care Team Providers Care Smoking Pipe Maker Name Role Phone Radha Bolton CP Allergies, Adverse Reactions, Alerts Substance Reaction Status erythromycin Active
--- OUTSIDE RECORDS SUMMARY | 2018-03-05 06:38 | XMS REPORT | CCD ---
Author Author Auto Generated Organization [facility] Address Unknown Phone Unavailable Care Team Providers Care Cryptologic Support Specialist Name Role Phone Jona Caldera CP Allergies, Adverse Reactions, Alerts Substance Reaction Status erythromycin Active Medications Medication Instructions Start Date End Date Status Valium 5 mg oral 5 mg, 1 tab, PO, QID, PRN, 10 tab, 01/09/2012 Ordered tablet dizziness, Substitution Allowed, TAB Gore 5/325 oral 1 tab, PO, Q4-6H, PRN, 30 tab, as 01/09/2012 Ordered tablet needed for pain, Substitution Allowed, Maintenance Naprosyn 500 mg oral 500 mg, 1 tab, PO, BID, PRN, 20 01/09/2012 Ordered tablet tab, for pain, Substitution Allowed, TAB Toradol 30 mg/mL 30 mg, Route: IV, ONCE, Dosing 01/09/2012 01/09/2012 Completed injectable solution Weight 77.273, kg, Start date: 01/09/12 0:06:00, Stop date: 01/09/12 0:06:00 Vital Signs Most recent to oldest [Reference Range]: 1 Height 157.48 cm (01/08/2012 22:06:00) Weight 77.273 kg (01/08/2012 22:06:00) Results CHEMISTRY Most recent to oldest [Reference Range]: 1 Total CK [12-191 unit/L] 55 unit/L (01/09/2012 02:27:00) CK MB [0.5-3.6 ng/mL] <0.5 ng/mL (01/09/2012 02:27:00) CK MB Index [0.0-2.5] <0.9 (01/09/2012 02:27:00) Troponin-I [0.00-0.40 ng/mL] <0.02 ng/mL (01/09/2012 02:27:00)
--- OUTSIDE RECORDS SUMMARY | 2018-03-05 06:38 | XMS REPORT | CCD ---
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
--- OUTSIDE RECORDS SUMMARY | 2018-03-05 06:39 | XMS REPORT | Summary of Care ---
Author Author MIRIAM SERRANO N.P. Organization Unknown Address Unknown Phone Unavailable Care Team Providers Care Fur Ironer Name Role Phone NELLIE SCHWARZ N.P. Unavailable Unavailable MIRIAM SERRANO N.P. Unavailable Unavailable Unavailable Unavailable Functional Status Name Dates Details Functional status health issues are not documented Status: Name Dates Details Cognitive status health issues are not documented Status: Problems Name Dates Details Ovarian cyst (620.2, N83.209) Status: Active Urinary symptom or sign (788.99, R39.9) Status: Active Pain of female symphysis pubis (625.9, N94.9) Status: Active Medications Name Dates Details Aleve TABS Active Benadryl Allergy TABS * Refills: 0 Active Indomethacin 25 MG Oral Capsule TAKE 1 CAPSULE 2 TO 3 TIMES DAILY WITH FOOD. * Quantity: 90 Refills: 1 CHONG N.P., NELLIE * Start : 11-Nov-2017 Active Allergies and Adverse Reactions Name Dates Details erythromycin (Allergy) Status: Active Procedures Procedure Dates Details History of section Completed History of Rotator cuff repair Completed History of Hysterectomy robotic Completed History of Salpingo-oophorectomy bilateral Completed Immunization Name Dates Details Immunizations not documented Family History Name Dates Details No pertinent family history (V49.89, Z78.9) Status: Active Social History Name Dates Details - Status: Name Dates Details Never smoker Vital Signs Date Test Result Details No Known Vitals to report Results Date Description Value Details Results not documented Plan of Care Name Dates Details Planned Observations Planned Goals not documented Interventions Provided Labs/Procedures/Imaging* MRI Pelvis with contrast 83231; To Be Done: 15 Jan 2018 Instructions Name Dates Details Instructions not documented Encounters Appointment; BRIDGETTE FLORIAN M.D. Encounter Diagnosis: Problem not documented On: 18-Mar-2017 10:00 Appointment; BRIDGETTE FLORIAN M.D. Encounter Diagnosis: Problem not documented On: 01-Apr-2017 8:00 Appointment; BRIDGETTE FLORIAN M.D. Encounter Diagnosis: Problem not documented On: 22-Dec-2017 11:30 Appointment; ROSELINE SMALLS M.D. Encounter Diagnosis: Problem not documented On: 10-Apr-2017 10:20 Appointment; BRIDGETTE FLORIAN M.D. Encounter Diagnosis: Problem not documented On: 22-Apr-2017 12:20 Appointment; BRIDGETTE FLORIAN M.D. Encounter Diagnosis: Problem not documented On: 13-May-2017 11:40 Appointment; BRIDGETTE FLORIAN M.D. Encounter Diagnosis: Problem not documented On: 11-Nov-2017 9:20
--- OUTSIDE RECORDS SUMMARY | 2018-03-05 06:39 | XMS REPORT ---
Author Author Alba Willis Organization [employer] Address Unknown Phone Unavailable Care Team Providers Care Head Of Mathematics Name Role Phone Alba Willis CP Unavailable Allergies, Adverse Reactions, Alerts Substance Reaction Event Type Erythromycin Info Not Available Drug Allergy Encounters Encounter Location Date pt seen at [facility] for cardiac f/u Alba [place], [place] October 11, 2014 Problems Problem Type Condition ICD-9 Code Onset Dates Condition Status Assessment Precordial pain 786.51 Active Assessment Pure hypercholesterolemia 272.0 Active Problem Pure hypercholesterolemia 272.0 Active Assessment Abnormal EKG 794.31 Active Assessment Abn. Cardio Study 794.39 Active Medications Medication Code System Code Instructions Start Date End Date Status Dosage Indomethacin [facility] [address]-80 25 MG Orally Twice a day October 11, 2014 November 10, 2014 Active 1 capsule with food Social History Social History Element Qualifiers Date Reported Smoking: . Are you a: Never smoker October 11, 2014 Alcohol: . Social, seldom October 11, 2014 Vital Signs Date/Time: October 11, 2014 Weight 170 lbs Cardiac Monitoring Heart Rate 76 /min Blood Pressure Diastolic 88 mm Hg Blood Pressure Systolic 124 mm Hg Summary Purpose [employer] Submission
--- OUTSIDE RECORDS SUMMARY | 2018-03-05 06:39 | XMS REPORT | Summary of Care ---
Author Author Deanna Thompson M.A. Organization Unknown Address Unknown Phone Unavailable Care Team Providers Care Ordering Box Operator Name Role Phone BRIDGETTE FLORIAN M.D. Unavailable Unavailable Unavailable Unavailable Functional Status Name Dates Details Functional status health issues are not documented Status: Name Dates Details Cognitive status health issues are not documented Status: Problems Name Dates Details Ovarian cyst (620.2, N83.209) Status: Active Urinary symptom or sign (788.99, R39.9) Status: Active Medications Name Dates Details TraMADol HCl - 50 MG Oral Tablet Active Motrin IB 200 MG Oral Tablet * Refills: 0 Active Allergies and Adverse Reactions Name Dates Details erythromycin (Allergy) Status: Active Procedures Procedure Dates Details History of section Completed History of rotator cuff repair Completed History of hysterectomy robotic Completed History of salpingo-oophorectomy bilateral Completed Immunization Name Dates Details Immunizations not documented Family History Name Dates Details No pertinent family history Status: Active Social History Name Dates Details - Status: Name Dates Details Never smoker Vital Signs Date Test Result Details [id number] BP Systolic 134 mm[Hg] Status: Comments: Location: E; Position: Sitting BP Diastolic 85 mm[Hg] Status: Comments: Location: [facility]; Position: Sitting Height 156.4 cm Status: Weight 179 lb Status: Body Mass Index Calculated 33.19 kg/m2 Status: Body Surface Area Calculated 1.81 m2 Status: Temperature 98.7 f Status: Comments: Method: Oral Heart Rate 105 /min Status: Respiration Rate 18 /min Status: [id number] BP Systolic 143 mm[Hg] Status: Comments: Location: [facility]; Position: Sitting BP Diastolic 93 mm[Hg] Status: Comments: Location: [facility]; Position: Sitting Height 156.4 cm Status: Weight 182 lb Status: Body Mass Index Calculated 33.75 kg/m2 Status: Body Surface Area Calculated 1.83 m2 Status: Temperature 98.5 f Status: Comments: Method: Oral Heart Rate 74 /min Status: Respiration Rate 18 /min Status: Results Date Description Value Details [id number] [[facility]] URINALYSIS, COMPLETE UA Turbidity Clear Range: Clear UA Spec Grav 1.017 Range: <=1.030 UA pH 5.0 Range: 5.0-8.0 UA Protein Negative mg/dl Range: Negative UA Glucose Negative mg/dl Range: Negative UA Ketones Negative mg/dl Range: Negative UA Bili Negative Range: Negative UA Blood Moderate (Abnormal) Range: Negative UA Nitrite Negative Range: Negative UA Leuk Est Negative Range: Negative UA RBC 2 {/HPF} Range: 0-2 UA WBC 1 {/HPF} Range: 0-5 UA Mucus Few {/LPF} Range: None Seen UA Sq Epi Occasional {/LPF} Range: Few UA Color Ltyellow UROBILINOGEN <=1.0 mg/dl Range: 0.1-1.0 [id number] [[facility]] CULTURE, URINE, ROUTINE Comments: Source: Urine, Clean CatchBody Site: FINAL REPORT 10,000 - 50,000 CFU/mL Group B Streptococcus No susceptibility performed sincethese organisms are predictably susceptible to penicillin. If patient ispenicillin allergic or susceptibility testing for additional antibiotics isclinically warranted please call the laboratory. Plan of Care Name Dates Details Planned Observations Planned Goals not documented Planned Encounters Appointment; BRIDGETTE FLORIAN M.D. On: 20-May-2017 11:20 Instructions Name Dates Details Instructions not documented Encounters Appointment; BRIDGETTE FLORIAN M.D. Encounter Diagnosis: Problem not documented On: 18-Mar-2017 10:00 Appointment; BRIDGETTE FLORIAN M.D. Encounter Diagnosis: Problem not documented On: 01-Apr-2017 8:00 Appointment; BRIDGETTE FLORIAN M.D. Encounter Diagnosis: Problem not documented On: 05-Apr-2017 11:30 Appointment; ROSELINE SMALLS M.D. Encounter Diagnosis: Problem not documented On: 10-Apr-2017 10:20 Appointment; BRIDGETTE FLORIAN M.D. Encounter Diagnosis: Problem not documented On: 22-Apr-2017 12:20 Appointment; BRIDGETTE FLORIAN M.D. Encounter Diagnosis: Problem not documented On: 13-May-2017 11:40
--- OUTSIDE RECORDS SUMMARY | 2018-03-05 06:39 | XMS REPORT | Summary of Care ---
Author Author [facility] Organization [facility] Address Unknown Phone Unavailable Encounter SARAH Gonzalez(KRYSTINA) [id number] Date(s): 04/05/17 - 04/06/17 [facility] [address] [employer] provided by [employer] [facility] [place] [place] [address]- Discharge Disposition: Home or Self Care Attending Physician: Mak Jacobo MD Referring Physician: Mak Jacobo MD Vital Signs 1 2 3 Most recent to oldest [Reference Range]: 157.4 cm (04/05/17 8:20 PM) 157.48 cm (04/05/17 10:30 AM) 157.48 cm (04/04/17 2:02 PM) Height 99.2 DegF *HI* (04/06/17 3:56 PM) 98.4 DegF (04/06/17 11:14 AM) 98.7 DegF (04/06/17 7:19 AM) Temperature Oral [96.4-99.1 DegF] 108/71 mmHg (04/06/17 3:56 PM) 101/66 mmHg (04/06/17 11:14 AM) 113/74 mmHg (04/06/17 7:19 AM) Blood Pressure [90-140/60-90 mmHg] 18 BRMIN (04/06/17 3:56 PM) 18 BRMIN (04/06/17 11:14 AM) 18 BRMIN (04/06/17 7:19 AM) Respiratory Rate [14-20 BRMIN] 86 bpm (04/06/17 3:56 PM) 83 bpm (04/06/17 11:14 AM) 78 bpm (04/06/17 7:19 AM) Peripheral Pulse Rate [60-100 bpm] 81.818 kg (04/05/17 8:20 PM) 81.818 kg (04/05/17 10:30 AM) 81.818 kg (04/04/17 2:02 PM) Weight 33.02 m2 (04/05/17 8:20 PM) 32.99 m2 (04/05/17 10:30 AM) 32.99 m2 (04/04/17 2:02 PM) Body Mass Index Problem List Condition Effective Dates Status Health Status Informant Menorrhagia(Confirme Resolved d) Obesity(Confirmed) Resolved Allergies, Adverse Reactions, Alerts Substance Reaction Severity Status erythromycin Active Medications acetaminophen 1,000 mg, 2 tab, Route: PO, Drug form: TAB, Q6H, Dosing Weight 81.818, kg, Start date: 04/05/17 21:00:00 [employer], Duration: 30 day, Stop date: 05/05/17 12:00:00 [employer] Notes: Max acetaminophen 4000 mg/day (4 gm/day). (Same as: Tylenol Extra Streng th) Start Date: 04/05/17 Stop Date: 04/06/17 Status: Discontinued acetaminophen (ANES) Route: IV, Drug form: INJ, ONCE, Stop date: 04/05/17 15:07:00 [employer] Start Date: 04/05/17 Stop Date: 04/05/17 Status: Completed ANES flumazenil 0.2 mg, 2 mL, Route: IVP, Drug form: INJ, PRN, Dosing Weight 81.818, kg, PRN Jony zodiazepine Reversal, Initial dose, Start date: 04/05/17 13:38:00 [employer], Duration: 30 day, Stop date: 05/05/17 13:37:00 [employer] Notes: (Same as: Romazicon) Start Date: 04/05/17 Stop Date: 04/05/17 Status: Discontinued ANES hydrALAZINE 10 mg, 0.5 mL, Route: IVP, Drug form: INJ, Q20Min, Dosing Weight 81.818, kg, PRN Elevated BP, Start date: 04/05/17 13:38:00 [employer], Duration: 2 doses or times, Stop date: Limited # of times Notes: (Same as: Apresoline)Push over 5 minutes Start Date: 04/05/17 Stop Date: 04/05/17 Status: Discontinued ANES HYDROmorphone 0.5 mg, 0.25 mL, Route: IVP, Drug form: INJ, Q5Min, Dosing Weight 81.818, kg, FL N Pain Score 7-10, Start date: 04/05/17 13:38:00 [employer], Duration: 4 doses or times , Stop date: Limited # of times Notes: Same as Dilaudid Start Date: 04/05/17 Stop Date: 04/05/17 Status: Discontinued ANES labetalol 10 mg, 2 mL, Route: IVP, Drug form: INJ, Q5Min, Dosing Weight 81.818, kg, PRN El evated BP, Start date: 04/05/17 13:38:00 [employer], Duration: 5 doses or times, Stop d ate: Limited # of times Start Date: 04/05/17 Stop Date: 04/05/17 Status: Discontinued ANES naloxone 0.4 mg, 1 mL, Route: IVP, Drug form: INJ, Q2MIN, Dosing Weight 81.818, kg, PRN N arcotic Reversal, Start date: 04/05/17 13:38:00 [employer], Duration: 8 doses or times, Stop date: Limited # of times Notes: Same as Narcan Start Date: 04/05/17 Stop Date: 04/05/17 Status: Discontinued ANES ondansetron 4 mg, 2 mL, Route: IVP, Drug form: INJ, ONCE, Dosing Weight 81.818, kg, PRN Naus ea & Vomiting, Start date: 04/05/17 13:38:00 [employer] Notes: (Same as: Antoinette) MEDICATION WASTE Product Size: 4 mgProduct Was radhika: ___ mg Start Date: 04/05/17 Stop Date: 04/05/17 Status: Discontinued ANES oxyCODONE 10 mg, 2 tab, Route: PO, Drug form: TAB, Q4H, Dosing Weight 81.818, kg, PRN Pain Score 7-10, Start date: 04/05/17 13:38:00 [employer], Duration: 30 day, Stop date: 13:37:00 [employer] Notes: (Same as: Roxicodone) Start Date: 04/05/17 Stop Date: 04/05/17 Status: Discontinued ANES oxyCODONE 5 mg, 1 tab, Route: PO, Drug form: TAB, Q4H, Dosing Weight 81.818, kg, PRN Pain Score 4-6, Start date: 04/05/17 13:38:00 [employer], Duration: 30 day, Stop date: 05/05 13:37:00 [employer] Notes: (Same as: Roxicodone) Start Date: 04/05/17 Stop Date: 04/05/17 Status: Discontinued Benadryl 25 mg, PO, Daily, PRN as needed for allergy symptoms, 0 Refill(s) Start Date: 04/04/17 Stop Date: 04/06/17 Status: Discontinued ceFAZolin (ANES) Route: IV, Drug form: INJ, ONCE, Stop date: 04/05/17 17:42:00 [employer] Start Date: 04/05/17 Stop Date: 04/05/17 Status: Completed ceFAZolin (ANES) Route: IV, Drug form: INJ, ONCE, Stop date: 04/05/17 14:52:00 [employer] Start Date: 04/05/17 Stop Date: 04/05/17 Status: Completed CeleBREX 200 mg, 1 cap, Route: PO, Drug form: CAP, Q12H, Dosing Weight 81.818, kg, Start date: 04/06/17 0:00:00 [employer], Duration: 30 day, Stop date: 05/05/17 12:00:00 [employer] Notes: NSAID. Please check indication. Not for seizure. (Same As: CeleBREX) Start Date: 04/06/17 Stop Date: 04/06/17 Status: Discontinued CeleBREX 400 mg, 2 cap, Route: PO, Drug form: CAP, ONCE, Dosing Weight 81.818, kg, Priori ty: Routine, Start date: 04/05/17 20:40:00 [employer], Stop date: 04/05/17 20:40:00 [employer] Notes: NSAID. Please check indication. Not for seizure. (Same As: CeleBREX) Start Date: 04/05/17 Stop Date: 04/06/17 Status: Completed CeleBREX 400 mg, 4 cap, Route: PO, Drug form: CAP, PRE OP, Dosing Weight 81.818, kg, Star t date: 04/04/17 20:00:00 [employer], Duration: 30 day, Stop date: 05/04/17 19:59:00 CS T Notes: NSAID. Please check indication. Not for seizure. (Same As: CeleBREX) Start Date: 04/04/17 Stop Date: 04/05/17 Status: Completed CeleBREX 400 mg, 2 cap, Route: PO, Drug form: CAP, ONCE, Dosing Weight 81.818, kg, Priori ty: NOW, Start date: 04/05/17 12:31:00 [employer], Stop date: 04/05/17 12:31:00 [employer] Notes: NSAID. Please check indication. Not for seizure. (Same As: CeleBREX) Start Date: 04/05/17 Stop Date: 04/05/17 Status: Deleted celecoxib 200 mg, 1 cap, Route: PO, Drug form: CAP, Q12H, Dosing Weight 81.818, kg, Start date: 04/05/17 21:00:00 [employer], Duration: 30 day, Stop date: 05/05/17 9:00:00 [employer] Notes: NSAID. Please check indication. Not for seizure. (Same As: CeleBREX) Start Date: 04/05/17 Stop Date: 04/05/17 Status: Deleted dexamethasone (ANES) Route: IV, Drug form: INJ, ONCE, Stop date: 04/05/17 14:41:00 [employer] Start Date: 04/05/17 Stop Date: 04/05/17 Status: Completed docusate-senna 50 mg-8.6 mg oral tablet 1 tab, PO, BID, # 60 tab, 0 Refill(s) Start Date: 04/06/17 Stop Date: 04/13/17 Status: Ordered docusate-senna 50 mg-8.6 mg oral tablet 1 tab, Route: PO, Drug Form: TAB, Dosing Weight 81.818, kg, BID, Start date: 9:00:00 [employer], Duration: 30 day, Stop date: 05/05/17 17:00:00 [employer] Notes: (Same as Senokot-S) Equiv. to Nitza-Colace. Start Date: 04/06/17 Stop Date: 04/06/17 Status: Discontinued enoxaparin 40 mg, 0.4 mL, Route: SUB-Q, Drug form: INJ, [id number], Dosing Weight 81.818, kg, Start date: 04/06/17 9:00:00 [employer], Duration: 30 day, Stop date: 05/05/17 9:00:00 [employer] Notes: (Same as: Lovenox) Start Date: 04/06/17 Stop Date: 04/06/17 Status: Discontinued famotidine (ANES) Route: IV, Drug form: INJ, ONCE, Stop date: 04/05/17 15:12:00 [employer] Start Date: 04/05/17 Stop Date: 04/05/17 Status: Completed fentaNYL (ANES) Route: IV, Drug form: INJ, ONCE, Stop date: 04/05/17 14:41:00 [employer] Start Date: 04/05/17 Stop Date: 04/05/17 Status: Completed fentaNYL (ANES) Route: IV, Drug form: INJ, ONCE, Stop date: 04/05/17 16:47:00 [employer] Start Date: 04/05/17 Stop Date: 04/05/17 Status: Completed gabapentin 300 mg, 1 cap, Route: PO, Drug form: CAP, Q8H, Dosing Weight 81.818, kg, Start d ate: 04/05/17 20:38:00 [employer], Duration: 30 day, Stop date: 05/05/17 16:00:00 [employer] Notes: (Same as: Neurontin) Start Date: 04/05/17 Stop Date: 04/06/17 Status: Discontinued gabapentin 300 mg, 1 cap, Route: PO, Drug form: CAP, PRE OP, Dosing Weight 81.818, kg, Star t date: 04/04/17 20:00:00 [employer], Duration: 30 day, Stop date: 05/04/17 19:59:00 CS T Notes: (Same as: Neurontin) Start Date: 04/04/17 Stop Date: 04/05/17 Status: Completed gabapentin 300 mg oral capsule 300 mg=1 cap, PO, Q8H, # 60 cap, 0 Refill(s) Start Date: 04/06/17 Status: Ordered glycopyrrolate (ANES) Route: IV, Drug form: INJ, ONCE, Stop date: 04/05/17 17:59:00 [employer] Start Date: 04/05/17 Stop Date: 04/05/17 Status: Completed heparin 5,000 unit, 1 mL, Route: SUB-Q, Drug form: INJ, PRE OP, Dosing Weight 81.818, kg , Start date: 04/05/17 11:00:00 [employer], Duration: 30 day, Stop date: 05/05/17 10:59 :00 [employer] Notes: porcine heparin Start Date: 04/05/17 Stop Date: 04/05/17 Status: Completed heparin 5000 units/mL injectable solution 5,000 unit, 1 mL, Route: IV, Drug form: INJ, PRE OP, Dosing Weight 81.818, kg, S tart date: 04/04/17 20:00:00 [employer], Duration: 30 day, Stop date: 05/04/17 19:59:00 [employer] Notes: porcine heparin Start Date: 04/04/17 Stop Date: 04/05/17 Status: Deleted ketAMINE (ANES) Route: IV, Drug form: INJ, ONCE, Stop date: 04/05/17 14:41:00 [employer] Start Date: 04/05/17 Stop Date: 04/05/17 Status: Completed ketOROLAC (ANES) IV, ONCE Start Date: 04/05/17 Stop Date: 04/05/17 Status: Completed Lactated Ringers Injection IV (ANES) 1000 mL Route: IV, Total Volume: 1,000, Start date: 04/05/17 13:45:00 [employer], Stop date: 14:45:00 [employer] Start Date: 04/05/17 Stop Date: 04/05/17 Status: Completed Lactated Ringers Injection IV 1,000 mL 1,000 mL, Rate: 80 ml/hr, Infuse over: 12.5 hr, Route: IV, Dosing Weight 81.818 kg, Total Volume: 1,000, Start date: 04/05/17 18:00:00 [employer], Duration: 30 day, St op date: 05/05/17 17:59:00 [employer], 1.92, m2 Start Date: 04/05/17 Stop Date: 04/06/17 Status: Discontinued lidocaine (ANES) Route: IV, Drug form: INJ, ONCE, Stop date: 04/05/17 14:41:00 [employer] Start Date: 04/05/17 Stop Date: 04/05/17 Status: Completed midazolam (ANES) Route: IV, Drug form: SOLN, ONCE, Stop date: 04/05/17 14:41:00 [employer] Start Date: 04/05/17 Stop Date: 04/05/17 Status: Completed neostigmine (ANES) Route: IV, Drug form: INJ, ONCE, Stop date: 04/05/17 17:59:00 [employer] Start Date: 04/05/17 Stop Date: 04/05/17 Status: Completed Neurontin 300 mg, Route: PO, ONCE, Dosing Weight 81.818, kg, Priority: NOW, Start date: 12:31:00 [employer], Stop date: 04/05/17 12:31:00 [employer] Start Date: 04/05/17 Stop Date: 04/05/17 Status: Deleted ondansetron 4 mg, 2 mL, Route: IVP, Drug form: INJ, Q8H, Dosing Weight 81.818, kg, PRN Nause a & Vomiting, Start date: 04/05/17 14:02:00 [employer], Duration: 30 day, Stop date: 05/05/17 14:01:00 [employer] Notes: (Same as: Antoinette) MEDICATION WASTE Product Size: 4 mgProduct Was radhika: ___ mg Start Date: 04/05/17 Stop Date: 04/06/17 Status: Discontinued ondansetron (ANES) Route: IV, Drug form: INJ, ONCE, Stop date: 04/05/17 17:59:00 [employer] Start Date: 04/05/17 Stop Date: 04/05/17 Status: Completed ondansetron 4 mg oral tablet 4 mg=1 tab, PO, Q8H, PRN Nausea, # 60 tab, 0 Refill(s) Start Date: 04/06/17 Status: Ordered propofol (ANES) Route: IV, Drug form: INJ, ONCE, Stop date: 04/05/17 14:41:00 [employer] Start Date: 04/05/17 Stop Date: 04/05/17 Status: Completed Reglan 10 mg, 2 mL, Route: IVP, Drug form: INJ, Q6H, Dosing Weight 81.818, kg, PRN Naus ea & Vomiting, Start date: 04/05/17 18:00:00 [employer], Duration: 30 day, Stop date: 05/05/17 17:59:00 [employer] Notes: (Same as: Reglan) Start Date: 04/05/17 Stop Date: 04/06/17 Status: Discontinued rocuronium (ANES) Route: IV, Drug form: INJ, ONCE, Stop date: 04/05/17 14:41:00 [employer] Start Date: 04/05/17 Stop Date: 04/05/17 Status: Completed rocuronium (ANES) Route: IV, Drug form: INJ, ONCE, Stop date: 04/05/17 15:37:00 [employer] Start Date: 04/05/17 Stop Date: 04/05/17 Status: Completed scopolamine 1.5 mg transdermal film 1 patch, Route: TOP, Drug Form: ERFILM, Dosing Weight 81.818, kg, PRE OP, Start date: 04/05/17 13:00:00 [employer], Duration: 30 day, Stop date: 05/05/17 12:59:00 [employer] Start Date: 04/05/17 Stop Date: 04/05/17 Status: Deleted scopolamine 1.5 mg transdermal film 1 patch, Route: TOP, Drug Form: ERFILM, Dosing Weight 81.818, kg, PRE OP, Start date: 04/04/17 20:00:00 [employer], Duration: 30 day, Stop date: 05/04/17 19:59:00 [employer] Notes: Change patch every 72 hours (Same as: Transderm-Scop) Start Date: 04/04/17 Stop Date: 04/05/17 Status: Completed simethicone 160 mg, 2 tab, Route: CHEW, Drug form: CHEWTAB, TID, Dosing Weight 81.818, kg, P RN Gas, Start date: 04/05/17 18:00:00 [employer], Duration: 30 day, Stop date: 05/05/17 17:59:00 [employer] Notes: (Same as: Mylicon) Start Date: 04/05/17 Stop Date: 04/06/17 Status: Discontinued Sodium Chloride 0.9% IV (ANES) 100 mL + magnesium sulfate (ANES) 2000 mg Route: IV, Drug form: INJ, Start date: 04/05/17 15:07:00 [employer], Stop date: 7 16:07:00 [employer] Start Date: 04/05/17 Stop Date: 04/05/17 Status: Completed tramadol 50 mg, 1 tab, Route: PO, Drug form: TAB, Q6H, Dosing Weight 81.818, kg, PRN Pain Score 4-6, Start date: 04/05/17 14:02:00 [employer], Duration: 30 day, Stop date: 04/16 05/02 14:01:00 [employer] Notes: Not to exceed 400mg/day. (Same As: Ultram) Start Date: 04/05/17 Stop Date: 04/06/17 Status: Discontinued tramadol 100 mg, 2 tab, Route: PO, Drug form: TAB, Q6H, Dosing Weight 81.818, kg, PRN Tiffanie n Score 7-10, Start date: 04/05/17 14:02:00 [employer], Stop date: 05/05/17 14:01:00 CS T Notes: Not to exceed 400mg/day. (Same As: Ultram) Start Date: 04/05/17 Stop Date: 04/06/17 Status: Discontinued tramadol 50 mg oral tablet 50 mg=1 tab, PO, Q6H, PRN Pain Score 4-6, # 30 tab, 0 Refill(s) Start Date: 04/06/17 Stop Date: 04/13/17 Status: Ordered Zofran 4 mg, 1 tab, Route: PO, Drug form: TAB, Q8H, Dosing Weight 81.818, kg, PRN Nause a, Start date: 04/05/17 18:00:00 [employer], Duration: 30 day, Stop date: 05/05/17 17:5 9:00 [employer] Notes: (Same as: Zofran) Start Date: 04/05/17 Stop Date: 04/06/17 Status: Discontinued Results BLOOD BANK RESULTS Most recent to 1 2 oldest [Reference Range]: ABO/Rh O NEG *Unknown* (04/04/17 11:36 AM) Antibody Scrn Negative (04/04/17 11:36 AM) ELECTROLYTES Most recent to 1 2 oldest [Reference Range]: Sodium Lvl [135-145 140 mEq/L 141 mEq/L mEq/L] (04/06/17 5:17 AM) (04/04/17 9:37 AM) Potassium Lvl 4.7 mEq/L 4.4 mEq/L [3.5-5.1 mEq/L] (04/06/17 5:17 AM) (04/04/17 9:37 AM) Chloride Lvl [95-109 108 mEq/L 104 mEq/L mEq/L] (04/06/17:17 AM) (04/04/17 9:37 AM) CO2 [24-32 mEq/L] 24 mEq/L 27 mEq/L (04/06/17:17 AM) (04/04/17:37 AM) AGAP [10.0-20.0 12.7 mEq/L 14.4 mEq/L mEq/L] (04/06/17:17 AM) (04/04/17 9:37 AM) CHEM PANEL Most recent to 1 2 oldest [Reference Range]: Creatinine Lvl 0.80 mg/dL 0.55 mg/dL [0.50-1.40 mg/dL] (04/06/17 5:17 AM) (04/04/17 9:37 AM) eGFR 85 mL/min/1.73m2 1 109 mL/min/1.73m2 2 *NA* *NA* (04/06/17 5:17 AM) (04/04/17 9:37 AM) BUN [7-22 mg/dL] 13 mg/dL 10 mg/dL (04/06/17 5:17 AM) (04/04/17 9:37 AM) Glucose Lvl [70-99 122 mg/dL 84 mg/dL mg/dL] *HI* (04/04/17 9:37 AM) (04/06/17:17 AM) Calcium Lvl 8.5 mg/dL 9.4 mg/dL [8.5-10.5 mg/dL] (04/06/17 5:17 AM) (04/04/17 9:37 AM) Magnesium Lvl 2.5 mg/dL [1.8-2.4 mg/dL] *HI* (04/06/17 5:17 AM) 1Result Comment: The eGFR is calculated using the [...] from the National Kid[employer] Disease Education Program ( NKDEP) which additionally recommends that when the eGFR is used in patients with extremes of body mass index for purposes of drug dosing, the eGFR should be mul tiplied by the estimated BMI. 2Result Comment: The eGFR is calculated using the [...] from the National Kid[employer] Disease Education Program ( NKDEP) which additionally recommends that when the eGFR is used in patients with extremes of body mass index for purposes of drug dosing, the eGFR should be mul tiplied by the estimated BMI. HEMATOLOGY Most recent to 1 2 oldest [Reference Range]: WBC [3.7-10.4 K/CMM] 10.9 K/CMM 8.1 K/CMM *HI* (04/04/17 9:37 AM) (04/06/17 5:17 AM) RBC [4.20-5.40 3.79 M/CMM 4.46 M/CMM M/CMM] *LOW* (04/04/17 9:37 AM) (04/06/17 5:17 AM) Hgb [12.0-16.0 g/dL] 10.8 g/dL 12.4 g/dL *LOW* (04/04/17 9:37 AM) (04/06/17 5:17 AM) Hct [36.0-48.0 %] 32.4 % 38.0 % *LOW* (04/04/17 9:37 AM) (04/06/17:17 AM) MCV [80.0-98.0 fL] 85.4 fL 85.1 fL (04/06/17:17 AM) (04/04/17 9:37 AM) MCH [27.0-31.0 pg] 28.5 pg 27.7 pg (04/06/17:17 AM) (04/04/17 9:37 AM) MCHC [32.0-36.0 33.4 g/dL 32.5 g/dL g/dL] (04/06/17:17 AM) (04/04/17 9:37 AM) RDW [11.5-14.5 %] 16.3 % 16.2 % *HI* *HI* (04/06/17:17 AM) (04/04/17 9:37 AM) Platelet [133-450 263 K/CMM 306 K/CMM K/CMM] (04/06/17:17 AM) (04/04/17 9:37 AM) MPV [7.4-10.4 fL] 8.6 fL 9.0 fL (04/06/17:17 AM) (04/04/17 9:37 AM) Segs [45.0-75.0 %] 77.1 % 59.3 % *HI* (04/04/17 9:37 AM) (04/06/17:17 AM) Lymphocytes 14.0 % 31.7 % [20.0-40.0 %] *LOW* (04/04/17 9:37 AM) (04/06/17 5:17 AM) Monocytes [2.0-12.0 8.7 % 6.4 % %] (04/06/17:17 AM) (04/04/17 9:37 AM) Eosinophils [0.0-4.0 2.1 % %] (04/04/17 9:37 AM) Basophils [0.0-1.0 0.2 % 0.5 % %] (04/06/17:17 AM) (04/04/17 9:37 AM) Segs-Bands # 8.4 K/CMM 4.8 K/CMM [1.5-8.1 K/CMM] *HI* (04/04/17 9:37 AM) (04/06/17 5:17 AM) Lymphocytes # 1.5 K/CMM 2.6 K/CMM [1.0-5.5 K/CMM] (04/06/17 5:17 AM) (04/04/17 9:37 AM) Monocytes # [0.0-0.8 0.9 K/CMM 0.5 K/CMM K/CMM] *HI* (04/04/17 9:37 AM) (04/06/17 5:17 AM) Eosinophils # 0.2 K/CMM [0.0-0.5 K/CMM] (04/04/17 9:37 AM) Immunizations No data available for this section Procedures Procedure Date Related Diagnosis Body Site section1 Hysterectomy2 Rotator cuff repair 1times 2 2possible staging Social History Social History Type Response Alcohol Current, Frequency: 1-2 times per month. Smoking Status Never smoker; Exposure to Tobacco Smoke None; Cigarette Smoking Last 365 Days No; Reg Smoking Cessation Counseling No Assessment and Plan Extracted from: Title: APMS Progress Note Author: Caleb Calvillo MD Date: 04/06/17 Impression and Plan 51 yo Fw with obesity, mennorhagia, and complex ovarian cyst s/p hystectomy on 04/05 with bilateral QL SS. sensory block regressing this AM. - patient's pain is well-controlled with current regimen - APMS will sign off. Please call with any further questions. Caleb Calvillo MD Anesthesiology PGY3
--- NOTE | 2018-03-05 07:44 | Diagnostic Imaging Report ---
PROCEDURE:X-RAY ABDOMEN - KUB COMPARISON:None. INDICATIONS:PRE OP FOR KIDNEY STONES FINDINGS: Left internal ureteral stent is noted. The proximal locking loop projects over the expected region of the left ureteropelvic junction. The distal locking loop projects over the low pelvis to the left of midline. 8mm ovoid calcification projects over the upper pole of the left kidney. No additional calcifications are identified projecting over the renal shadows or along the course of the left ureteral stent. Pelvic phleboliths are noted. Bowel gas pattern is nonobstructive. Regional skeletal structures are intact. CONCLUSION: 8mm left upper pole renal calculus with ureteral stent in place as above. Dictated by: Caleb Marie M.D. on 03/05/2018 at 7:54 Electronically approved by: Caleb Marie M.D. on 03/05/2018 at 7:54
[2018-03-05 12:00] VITALS: BP 130/72
--- NOTE | 2018-03-06 07:13 | Operative Report ---
DATE OF PROCEDURE: March 05, 2018 PREOPERATIVE DIAGNOSES 1. Left nephrolithiasis. 2. Left indwelling ureteral stent. 3. Cystorectocele. 4. Urethral hypermobility. 5. Mild atrophic vaginitis. POSTOPERATIVE DIAGNOSES 1. Left nephrolithiasis. 2. Left indwelling ureteral stent. 3. Cystorectocele. 4. Urethral hypermobility. 5. Mild atrophic vaginitis. 6. Urethral stenosis. PROCEDURES PERFORMED 1. Cystourethroscopy with calibration and dilation of urethral stenosis (separately performed for the diagnosis of urethral stenosis). 2. Cystourethroscopy with complicated removal of left indwelling ureteral stent (separately performed for the diagnosis of stent). 3. Left ureteral pyelography with Holmium laser lithotripsy (separately performed for the left upper pole nephrolithiasis). 4. Urological services for supervision and interpretation of ureteroscopy. 5. Interpretation of retrograde ureteropyelography. 6. Supervision of fluoroscopy; no radiologist present. 7. Pelvic examination under anesthesia. ANESTHESIA: General. COMPLICATIONS: None. CLINICAL SUMMARY: Angela Isabel is a 52-year-old woman who had a longstanding left obstructing ureteral stone. This stone is obstructing for over 2 months. The patient underwent ureteral stenting along with ureteroscopy with Holmium laser lithotripsy and stone extraction. The patient is brought to the operating room today to remove her stent. She is aware of the risks of bleeding, infection, injury to adjacent structures, need for additional procedures, and elected to proceed. OPERATIVE PROCEDURE IN DETAIL: Informed consent was verified. Angela Isabel was properly identified, taken to operating room, and placed on the cystoscopy table in supine position. Anesthesia was uneventfully begun. The patient was then carefully and gently repositioned in dorsal lithotomy position with all pressure points well padded. Her genitalia were prepared and draped in usual sterile fashion. A 22.5-[place] cystoscope sheath with the obturator in place could not be easily placed into the patient's urethral. The patient's urethra was calibrated at 16-[place] in size and dilated to 28-[place] in size without any problems. Cystoscope sheath was inserted into patient's urethra and the bladder was drained. Panendoscopy revealed no suspicious gross lesions, no tumors, no stones, and no diverticula. The left ureteral orifice was identified. A guidewire was then placed alongside the left stent and guided at the level of the patient's kidney. The stent was then grasped, completed fully removed and discarded. Semirigid ureteroscopy was then performed. The ureteroscope was brought up alongside the guidewire into the ureter. There was no evidence of any stricture. There was no evidence of any inflammation from the previously impacted stone. The ureter was completely unremarkable, and there were no stones present. Flexible ureteroscope was then brought up over the guidewire and guided at the level of the patient's kidney. Panendoscopy of the intrarenal collecting system revealed Jon's plaques throughout. There was cluster of several stones in the upper pole mckenna. We proceeded with utilizing the Holmium laser to perform Holmium laser lithotripsy and completely pulverize the stones present into very fine sand. No significantly sized stone fragments were remaining and all stone fragments were sub-millimeter in size. We carefully reexamined the entire intrarenal collecting system to ensure there were no residual stone fragments that could be grasped. We carefully reexamined the ureter as we exited. Interpretation of retrograde ureteropyelography: Contrast was instilled in retrograde fashion into the left hand side. There was no significant hydronephrosis. The calices were sharp and delicate. Filling defects in the upper pole mckenna corresponded to the stones that were pulverized. Unobstructed drainage was observed fluoroscopically. The ureter was unremarkable. Pelvic examination under anesthesia revealed a grade 1 to 2 cystocele. 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 The patient was then uneventfully reversed from anesthesia and taken to recovery room in stable condition. There were no complications to the procedure. She tolerated the procedure well. Plans will be as follows: 1. I have ordered a Lasix renogram to evaluate the patient's differential renal function, evaluate for any scarring, and ensure there is no obstruction. 2. A 24-hour urine will be performed in completing the patient's metabolic stone workup. 3. We will follow the patient up in the office, at which point in time we will determine which additional imaging modality is warranted to ensure she has no stones remaining. Job#: [id number] KATHRIN
== END | disposition home or self-care (01) ==
LOC: OR 06:35
PROVIDERS: ATTEND Urology
DX: N20.0 Calculus of kidney (principal); N28.89 Other specified disorders of kidney and ureter; N35.92 Unspecified urethral stricture, female; Z46.6 Encounter for fitting and adjustment of urinary device; N81.10 Cystocele, unspecified; N36.41 Hypermobility of urethra; N95.2 Postmenopausal atrophic vaginitis; N39.46 Mixed incontinence; R35.1 Nocturia; E66.9 Obesity, unspecified; I10 Essential (primary) hypertension; Z01.810 Encounter for preprocedural cardiovascular examination; Z01.812 Encounter for preprocedural laboratory examination; Z68.34 Body mass index [BMI] 34.0-34.9, adult; Z84.1 Family history of disorders of kidney and ureter
CPT/HCPCS: 36415; 52353; 74420; 80053; 85025; 93005; J0696; J1100; J1580; J2001; J2250; J2405; J2704; Q9967; 74018

== ENCOUNTER → 2018-04-09 | Outpatient (CLI) | payer OTHER ==
[~2018-04-09] MED LIST changes: -BELLADONNA/OPIUM 60 MG SUPP PR ONE; -CEFTRIAXONE SOD 1 GM VIAL ONE; -DEXAMETHASONE SOD PHOS INJ 4 MG/ML VIAL ONE; -FENTANYL CITRATE/PF 100MCG/2 ML INJ ONE; +FUROSEMIDE INJ 10 MG/ML 4 ML VIAL ONE; -GENTAMICIN 80MG/NS 100 ML 100 ML IV ONE; -IOPAMIDOL 610MG/1ML 300 MG/ML VIAL IV ONE; -LIDOCAINE HCL 2% LOCAL INJ 5 ML SDV VIAL INJ ONE; -MIDAZOLAM HCL 2 MG/2 ML VIAL ONE; -ONDANSETRON HCL INJ 2 MG/ML VIAL ONE; -PROPOFOL IV EMULSION 10 MG/ML 20 ML VIAL ONE; -SEVOFLURANE INHAL SOLN 250 ML PEN BTL ONE
--- NOTE | 2018-04-09 16:32 | Diagnostic Imaging Report ---
Renal Scan with Lasix [place] Clinical information: 52 F with renal calculi. Had stone in left ureter removed in 02/21/2018 and stent placed. Stent was removed 04/04/2018. Technique: Following intravenous administration of 10 mCi of Tc-99m MAG3, dynamic images of the kidneys in the posterior projection were obtained through 23 minutes. Lasix 40 mg was administered intravenously at 15 minutes post injection of the tracer. Report: Left kidney: Perfusion of the left kidney is prompt. The kidney has a normal reniform shape. Extraction of tracer from the blood pool is normal. Clearance of tracer from the renal parenchyma is prompt. The pelvicalyceal system is not dilated. Increased pooling of tracer is seen within the pelvicalyceal system. Drainage of tracer from the pelvicalyceal system is prompt and adequate prior to administration of Lasix. No significant stasis of tracer is seen within the left ureter. Right kidney: Perfusion to the right kidney is prompt. The right kidney has a normal reniform shape. Extraction of tracer by the renal parenchyma is normal. Clearance of tracer from the renal parenchyma is prompt. The pelvicalyceal system is not dilated. Physiologic pooling of tracer is seen within the pelvicalyceal system. Drainage of tracer from the pelvicalyceal system is prompt and adequate prior to administration of Lasix. No significant stasis of tracer is seen within the right ureter. Differential renal function: The left kidney contributes 46% of total renal function and the right kidney contributes 54% (normal 43-57%). Impression: 1. The function of the left kidney is generally normal. No hydronephrosis is present. No physiologically significant obstruction of the renal collecting system is present. 2. The function of the right kidney is generally normal. No hydronephrosis is present. No physiologically significant obstruction of the renal collecting system is present. 3. The differential renal function is preserved. Signed by: Dr. Elaina Santizo M.D. on 04/09/2018 4:29 PM
== END ==
LOC: NM 12:51
PROVIDERS: ATTEND Urology
DX: N20.0 Calculus of kidney (principal)
CPT/HCPCS: 78708; A9562; J1940

== ENCOUNTER 2021-08-31 12:52 | Inpatient (IN) | payer BC ==
[~2021-08-31] VITALS: Ht 157.5 cm; Wt 77.6 kg
[~2021-08-31 12:52] MED LIST changes: -FUROSEMIDE INJ 10 MG/ML 4 ML VIAL ONE
[2021-08-31 14:57] VITALS: BP 107/64
[2021-08-31 14:58] VITALS: BP 107/64
[2021-08-31 15:03] VITALS: BP 107/64
[2021-08-31 20:00] VITALS: BP 115/73
[2021-08-31] MEDS ORDERED: SERTRALINE HCL50 MG PO (20:12)
[2021-08-31] MEDS ORDERED: ULTRAM 50MG50 MG PO (20:12)
[2021-08-31] MEDS ORDERED: VITAMIN D250 MCG PO (20:12)
[2021-08-31] MEDS ORDERED: DEXTROAMP-AMPHE20 M1 PO (20:12)
[2021-08-31] MEDS ORDERED: CLONAZEPAM0.5 MG PO (20:12)
[2021-08-31] MEDS ORDERED: ACETAMINOPHEN 325 MG TAB PO PRN (20:30)
[2021-08-31] MEDS: CLONAZEPAM 0.5 MG TAB PO SCH (21:40)
[2021-08-31] MEDS: TRAMADOL HCL 50 MG TAB PO PRN (21:42)
[2021-08-31 23:44] VITALS: BP 115/73
[2021-09-01] VITALS (7 sets, daily range): BP systolic 99–115; BP diastolic 61–78
[2021-09-01] MEDS ORDERED: ONDANSETRON HCL INJ 2MG/ML 2ML 2 MG/ML VIAL IV PRN (01:00)
[2021-09-01] MEDS: SODIUM CHLORIDE 0.9% 1000ML 1,000 ML IV SCH ×2 (01:48→22:01)
[2021-09-01 05:44] LABS: BASOPHILS # (AUTO) 0.1 (0.0-0.1); BASOPHILS % 0.7 % (0.0-1.0); EOSINOPHILS # (AUTO) 0.2 (0.0-0.4); EOSINOPHILS % 2.4 % (0.0-6.0); HEMATOCRIT 42.2 % (34.2-44.1); HEMOGLOBIN 13.2 g/dL (12.0-16.0); LYMPHOCYTES # (AUTO) 4.3 (1.0-3.2); LYMPHOCYTES % 52.8 % (18.0-39.1); MEAN CORPUSCULAR HEMOGLOBIN 30.1 pg (28-32); MEAN CORPUSCULAR HGB CONC 31.3 g/dL (31-35); MEAN CORPUSCULAR VOLUME 96.3 fL (81-99); MONOCYTES # (AUTO) 0.6 (0.2-0.8); MONOCYTES % 7.1 % (4.4-11.3); NEUTROPHILS # (AUTO) 2.9 (2.1-6.9); NEUTROPHILS % 36.4 % (38.7-80.0); PLATELET COUNT 215 x10e3/uL (140-360); RED BLOOD COUNT 4.38 x10e6/uL (3.6-5.1); RED CELL DISTRIBUTION WIDTH 12.8 % (11.7-14.4)
[2021-09-01] MEDS ORDERED: CEFTRIAXONE 1 GM VIAL IM ONE (06:00)
[2021-09-01 06:10] LABS: ANION GAP 10.1 mmol/L (8-16); CREATININE, SERUM 0.71 mg/dL (0.57-1.11); POTASSIUM 4.1 mmol/L (3.5-5.1)
[2021-09-01] MEDS: SERTRALINE HCL 50 MG TAB PO SCH (09:00)
[2021-09-01] MEDS: [UNRECOGNIZED DRUG - OTHER] PO SCH (09:00)
[2021-09-01] MEDS: AMPHET PO SCH (09:00)
[2021-09-01] MEDS ORDERED: LIDOCAINE HCL 2% LOCAL INJ 5 ML SDV VIAL INJ ONE (12:24)
[2021-09-01] MEDS ORDERED: SEVOFLURANE INHAL SOLN 250 ML PEN BTL ONE (12:24)
[2021-09-01] MEDS ORDERED: PROPOFOL IV EMULSION 10 MG/ML 20 ML VIAL ONE (12:24)
[2021-09-01] MEDS ORDERED: ONDANSETRON HCL INJ 2MG/ML 2ML 2 MG/ML VIAL ONE (12:24)
[2021-09-01] MEDS ORDERED: DEXAMETHASONE SOD PHOS INJ 4 MG/ML SDV ONE (12:24)
[2021-09-01] MEDS ORDERED: POVIDONE IODINE 0.05% 0.05 % ML PO ONE (12:24)
[2021-09-01] MEDS ORDERED: KETOROLAC TROMETHAMINE 30 MG/ML VIAL ONE (12:24)
[2021-09-01] MEDS ORDERED: IOPAMIDOL 610MG/1ML 300 MG/ML VIAL IV ONE (13:04)
[2021-09-01] MEDS ORDERED: B&O 60MG R/S 60 MG SUPP PR ONE (13:04)
[2021-09-01] MEDS ORDERED: PHENAZOPYRIDINE HCL 100 MG TAB PO PRN (14:15)
[2021-09-01] MEDS ORDERED: B&O 60MG R/S 60 MG SUPP PR PRN (14:15)
[2021-09-01] MEDS ORDERED: MIDAZOLAM HCL 2 MG/2 ML VIAL ONE (14:58)
[2021-09-01] MEDS ORDERED: FENTANYL CITRATE/PF 100MCG/2 ML INJ ONE (14:58)
[2021-09-01] MEDS ORDERED: KETAMINE HCL INJ 50 MG/ML 10 ML VIAL ONE (14:58)
[2021-09-01] MEDS: TRAMADOL HCL 50 MG TAB PO PRN ×3 (15:48→22:27)
[2021-09-01] MEDS: CLONAZEPAM 0.5 MG TAB PO SCH (22:00)
[2021-09-02 00:31] VITALS: BP 95/50
[2021-09-02 04:00] VITALS: BP 111/65
[2021-09-02] MEDS: SODIUM CHLORIDE 0.9% 1000ML 1,000 ML IV SCH (04:01)
[2021-09-02] MEDS: TRAMADOL HCL 50 MG TAB PO PRN (04:15)
[2021-09-02 05:38] LABS: BASOPHILS % 0.4 % (0.0-1.0); EOSINOPHILS % 0.1 % (0.0-6.0); HEMOGLOBIN 12.4 g/dL (12.0-16.0); LYMPHOCYTES # (AUTO) 1.7 (1.0-3.2); LYMPHOCYTES % 16.8 % (18.0-39.1); MEAN CORPUSCULAR HEMOGLOBIN 30.5 pg (28-32); MEAN CORPUSCULAR HGB CONC 31.8 g/dL (31-35); MEAN CORPUSCULAR VOLUME 95.8 fL (81-99); MONOCYTES # (AUTO) 0.5 (0.2-0.8); MONOCYTES % 4.8 % (4.4-11.3); NEUTROPHILS % 77.3 % (38.7-80.0); PLATELET COUNT 220 x10e3/uL (140-360); RED BLOOD COUNT 4.07 x10e6/uL (3.6-5.1); RED CELL DISTRIBUTION WIDTH 12.7 % (11.7-14.4)
[2021-09-02 05:59] LABS: ANION GAP 10.1 mmol/L (8-16); CALCIUM 8.4 mg/dL (8.4-10.2); CREATININE, SERUM 0.68 mg/dL (0.57-1.11); POTASSIUM 5.1 mmol/L (3.5-5.1)
[2021-09-02] MEDS: SERTRALINE HCL 50 MG TAB PO SCH (08:18)
[2021-09-02 08:26] VITALS: BP 111/47
[2021-09-02 08:29] VITALS: BP 111/70
[2021-09-02] MEDS: [UNRECOGNIZED DRUG - OTHER] PO SCH (09:00)
[2021-09-02] MEDS: AMPHET PO SCH (09:00)
[2021-09-02 12:02] VITALS: BP 100/61
[2021-09-02] MEDS ORDERED: VESICARE5 MG PO (18:02)
[2021-09-02] MEDS ORDERED: CIPRO500 MG PO (18:02)
[2021-09-02] MEDS ORDERED: CELEBREX100 MG PO (18:03)
[2021-09-02] MEDS ORDERED: ULTRAM 50MG50 MG PO (18:06)
[2021-09-03] MEDS ORDERED: ERGOCALCIFEROL 50,000 UNIT CAP PO SCH (09:00)
== END 2021-09-02 18:27 | disposition home or self-care (01) | DRG 661 ==
LOC: MED/SURG 14:40
PROVIDERS: ADMIT Internal Medicine; ATTEND Internal Medicine
PROC: 0TC68ZZ Extirpation of Matter from Right Ureter, Via Natural or Artificial Opening Endoscopic (ICD-10-PCS; 2021-09-01)
PROC: BT141ZZ Fluoroscopy of Kidneys, Ureters and Bladder using Low Osmolar Contrast (ICD-10-PCS; principal; 2021-09-01 13:30)
PROC: 0T768DZ Dilation of Right Ureter with Intraluminal Device, Via Natural or Artificial Opening Endoscopic (ICD-10-PCS; 2021-09-01 13:30)
DX: N13.6 Pyonephrosis (principal); E83.51 Hypocalcemia; F41.9 Anxiety disorder, unspecified; Z20.822 Contact with and (suspected) exposure to COVID-19; N36.41 Hypermobility of urethra; N81.3 Complete uterovaginal prolapse; N95.2 Postmenopausal atrophic vaginitis; Q62.5 Duplication of ureter; Z90.710 Acquired absence of both cervix and uterus; Z88.8 Allergy status to other drugs, medicaments and biological substances
CPT/HCPCS: 36415; 74420; 80048; 83970; 84550; 85025; 87086; 88300; 96361; C1758; C2617; J0696; J1100; J1885; J2001; J2250; J2405; J3010; J7030; U0002

== ENCOUNTER → 2021-10-20 | Day surgery (SDC) | payer BC ==
[2021-10-19 10:26] LABS: BASOPHILS # (AUTO) 0.1 (0.0-0.1); BASOPHILS % 0.7 % (0.0-1.0); EOSINOPHILS # (AUTO) 0.2 (0.0-0.4); EOSINOPHILS % 2.2 % (0.0-6.0); HEMATOCRIT 42.6 % (34.2-44.1); HEMOGLOBIN 13.1 g/dL (12.0-16.0); LYMPHOCYTES # (AUTO) 2.6 (1.0-3.2); LYMPHOCYTES % 33.8 % (18.0-39.1); MEAN CORPUSCULAR HEMOGLOBIN 30.6 pg (28-32); MEAN CORPUSCULAR HGB CONC 30.8 g/dL (31-35); MEAN CORPUSCULAR VOLUME 99.5 fL (81-99); MONOCYTES # (AUTO) 0.5 (0.2-0.8); MONOCYTES % 6.9 % (4.4-11.3); NEUTROPHILS # (AUTO) 4.3 (2.1-6.9); NEUTROPHILS % 55.9 % (38.7-80.0); PLATELET COUNT 326 x10e3/uL (140-360); RED BLOOD COUNT 4.28 x10e6/uL (3.6-5.1); RED CELL DISTRIBUTION WIDTH 12.7 % (11.7-14.4)
[2021-10-19 10:51] LABS: ALBUMIN 3.9 g/dL (3.5-5.0); ALBUMIN/GLOBULIN RATIO 1.1 (0.8-2.0); ANION GAP 15.9 mmol/L (8-16); CALCIUM 9.7 mg/dL (8.4-10.2); CREATININE, SERUM 0.79 mg/dL (0.57-1.11); POTASSIUM 4.9 mmol/L (3.5-5.1)
[~2021-10-20] MED LIST changes: +AZO BLADDER CO300 MG PO; +B&O 60MG R/S 60 MG SUPP PR ONE; +CEFTRIAXONE 1 GM VIAL ONE; +CELEBREX100 MG PO; +CIPRO500 MG PO; +CLONAZEPAM0.5 MG PO; +DEXAMETHASONE SOD PHOS INJ 4 MG/ML SDV ONE; +DEXTROAMP-AMPHE20 M1 PO; +EPHEDRINE SULFATE INJ 50 MG/ML VIAL ONE; +FENTANYL CITRATE/PF 100MCG/2 ML INJ ONE; +GENTAMICIN 80MG/NS 100 ML 200 ML IV ONE; +IOPAMIDOL 610MG/1ML 300 MG/ML VIAL IV ONE; +LIDOCAINE HCL 2% LOCAL INJ 5 ML SDV VIAL INJ ONE; +MIDAZOLAM HCL 2 MG/2 ML VIAL ONE; +MULTI-VITAMIN1 EACH PO; +ONDANSETRON HCL INJ 2MG/ML 2ML 2 MG/ML VIAL ONE; +POVIDONE IODINE 0.05% 0.05 % ML PO ONE; +PROPOFOL IV EMULSION 10 MG/ML 20 ML VIAL ONE; +SERTRALINE HCL50 MG PO; +ULTRAM 50MG50 MG PO; +VESICARE5 MG PO; +VITAMIN D250 MCG PO; +ZYRTEC10 M3 PO
[2021-10-20 11:24] VITALS: BP 119/69
== END | disposition home or self-care (01) ==
LOC: OR 06:57
PROVIDERS: ATTEND Urology
DX: N20.0 Calculus of kidney (principal); Z46.6 Encounter for fitting and adjustment of urinary device; N13.30 Unspecified hydronephrosis; Q62.5 Duplication of ureter; N28.89 Other specified disorders of kidney and ureter; N81.10 Cystocele, unspecified; N36.41 Hypermobility of urethra; N81.6 Rectocele; N95.2 Postmenopausal atrophic vaginitis; D64.9 Anemia, unspecified; M26.609 Unspecified temporomandibular joint disorder, unspecified side; M25.512 Pain in left shoulder; M25.511 Pain in right shoulder; F98.8 Other specified behavioral and emotional disorders with onset usually occurring in childhood and adolescence; Z88.1 Allergy status to other antibiotic agents; I49.3 Ventricular premature depolarization; Z01.810 Encounter for preprocedural cardiovascular examination; Z01.812 Encounter for preprocedural laboratory examination; Z01.818 Encounter for other preprocedural examination; Z20.822 Contact with and (suspected) exposure to COVID-19; Z79.899 Other long term (current) drug therapy
CPT/HCPCS: 0223U; 36415; 50590; 52351; 74018; 80053; 84550; 85025; 93005; C1769; J0696; J1100; J1580; J2001; J2250; J2405; J2704; J3010

== ENCOUNTER → 2022-03-15 | Outpatient (CLI) | payer BC ==
[~2022-03-15] MED LIST changes: -B&O 60MG R/S 60 MG SUPP PR ONE; -CEFTRIAXONE 1 GM VIAL ONE; -DEXAMETHASONE SOD PHOS INJ 4 MG/ML SDV ONE; -EPHEDRINE SULFATE INJ 50 MG/ML VIAL ONE; -FENTANYL CITRATE/PF 100MCG/2 ML INJ ONE; -GENTAMICIN 80MG/NS 100 ML 200 ML IV ONE; -IOPAMIDOL 610MG/1ML 300 MG/ML VIAL IV ONE; -LIDOCAINE HCL 2% LOCAL INJ 5 ML SDV VIAL INJ ONE; -MIDAZOLAM HCL 2 MG/2 ML VIAL ONE; -ONDANSETRON HCL INJ 2MG/ML 2ML 2 MG/ML VIAL ONE; -POVIDONE IODINE 0.05% 0.05 % ML PO ONE; -PROPOFOL IV EMULSION 10 MG/ML 20 ML VIAL ONE
== END ==
LOC: RAD 09:18
PROVIDERS: ATTEND Urology
DX: N20.0 Calculus of kidney (principal)
CPT/HCPCS: 74018